=== PATIENT | female | born 1955 | race Caucasian/White ===

== ENCOUNTER → 2019-09-25 13:58 | Outpatient (BNVA) | payer MEDICARE, SELFPAY | PROVIDERS: Visit Provider Specialist | DX: R56.9 Unspecified convulsions (principal); R51 Headache; M06.9 Rheumatoid arthritis, unspecified; Z90.81 Acquired absence of spleen; Z96.649 Presence of unspecified artificial hip joint; Z87.891 Personal history of nicotine dependence | CPT/HCPCS: 99204 ==

== ENCOUNTER → 2019-10-11 07:51 | Outpatient (BNVA) | payer MEDICARE, SELFPAY | PROVIDERS: Visit Provider Specialist | DX: R56.9 Unspecified convulsions (principal) | CPT/HCPCS: 95816 ==

== ENCOUNTER 2019-11-29 11:19 | Outpatient (CLI) | payer MEDICARE, SELFPAY ==
--- NOTE | 2019-11-29 11:44 | MR_ITS ---
WS: [id number] MRI HEAD WITHOUT CONTRAST TECHNIQUE: Sagittal T1, T2 axial, T2 axial FLAIR, axial and coronal T1 images, axial susceptibility w eighted imaging, axial diffusion weighted images, and coronal T2 images were obtained. CLINICAL INFORMATION: R56.9 Unspecified convulsions COMPARISON: CT 3 016 FINDINGS: No evidence of restricted diffusion to suggest acute ischemia. Ventricular system and basal cisterns are patent. Mild small vessel changes. Moderate parenchymal volume loss. Cystic encephalomalacia in t he right frontal lobe with ex vacuo dilatation right lateral ventricle. This is likely due to prior i nfarct or hemorrhage. Cystic encephalomalacia communicates with right lateral ventricle. Prior right frontal craniotomy. Cystic encephalomalacia involves the corpus callosum with mild chronic thinning o f the corpus callosum No hydrocephalus. Normal posterior fossa. Normal vascular flow voids at the skull base. No extra-axia l fluid collections. Paranasal sinuses and mastoid air cells well aerated. No hemosiderin on the susc eptibly weighted images. Normal optic chiasm and pituitary infundibulum. Mild to moderate symmetric a trophy involving the temporal lobes and hippocampal formations. MR/MR head wo con* [id number] IMPRESSION: 1. No evidence of restricted diffusion to suggest acute ischemia. 2. Large area of cystic encephalomalacia involving the right frontal lobe repo rtedly due to prior hemorrhage/aneurysm rupture. Associated cystic dilatation o f the right lateral ventricle. Cystic encephalomalacia communicates with the ri ght frontal horn.. 3. Mild small vessel changes with moderate parenchymal volume loss. 4. Chronic thinning of the body and genu of the corpus callosum. 5. Mild to moderate symmetric atrophy involving the temporal lobes and hippoca mpal formations. No mesial temporal signal abnormalities. 6. No significant changes since the prior CT.
== END 2019-11-29 11:20 | disposition home or self-care (01) ==
LOC: RADSHAW 11:26
PROVIDERS: PCP Physician Assistant; Visit Provider Specialist
DX: R56.9 Unspecified convulsions (principal); G93.89 Other specified disorders of brain; G31.9 Degenerative disease of nervous system, unspecified
CPT/HCPCS: 70551

== ENCOUNTER → 2019-12-03 11:26 | Outpatient (BNVA) | payer MEDICARE, SELFPAY | PROVIDERS: PCP Physician Assistant; Visit Provider Specialist | DX: G40.909 Epilepsy, unspecified, not intractable, without status epilepticus (principal); G43.711 Chronic migraine without aura, intractable, with status migrainosus | CPT/HCPCS: 99214 ==

== ENCOUNTER → 2019-12-20 16:14 | Outpatient (BNVA) | payer MEDICARE, SELFPAY | PROVIDERS: PCP Physician Assistant; Visit Provider Nurse Practitioner Women's Health | DX: Z01.419 Encounter for gynecological examination (general) (routine) without abnormal findings (principal); Z79.890 Hormone replacement therapy | CPT/HCPCS: 83001; 84144; 84403; 84450; 88175 ==

== ENCOUNTER → 2020-01-08 07:59 | Outpatient (BNVA) | payer MEDICARE, SELFPAY | PROVIDERS: PCP Physician Assistant; Visit Provider Specialist | DX: R56.9 Unspecified convulsions (principal); G43.711 Chronic migraine without aura, intractable, with status migrainosus; Z87.891 Personal history of nicotine dependence | CPT/HCPCS: 95816 ==

== ENCOUNTER → 2020-03-12 11:33 | Outpatient (BNVA) | payer MEDICARE, SELFPAY | PROVIDERS: PCP Physician Assistant; Visit Provider Specialist | DX: R56.9 Unspecified convulsions (principal); G43.711 Chronic migraine without aura, intractable, with status migrainosus; Z87.891 Personal history of nicotine dependence | CPT/HCPCS: 99213 ==

== ENCOUNTER → 2020-09-10 13:23 | Outpatient (BNVA) | payer MEDICARE, SELFPAY | PROVIDERS: PCP Nurse Practitioner Family; Visit Provider Specialist | DX: G43.711 Chronic migraine without aura, intractable, with status migrainosus (principal); R56.9 Unspecified convulsions; R41.89 Other symptoms and signs involving cognitive functions and awareness; Z87.891 Personal history of nicotine dependence | CPT/HCPCS: 96116; 99214 ==

== ENCOUNTER → 2021-10-08 09:41 | Outpatient (BNVA) | payer MEDICARE, SELFPAY | PROVIDERS: PCP Nurse Practitioner Family; Visit Provider Specialist | DX: G40.909 Epilepsy, unspecified, not intractable, without status epilepticus (principal); I69.111 Memory deficit following nontraumatic intracerebral hemorrhage | CPT/HCPCS: 99214 ==

== ENCOUNTER 2022-01-05 23:38 | Inpatient (IN) | payer MEDICARE, SELFPAY ==
[2022-01-05 23:40] VITALS: BP 138/96; PULSE 71; RESP 20; TEMP 36.5; O2SAT 94
--- NOTE | 2022-01-05 23:46 | XRR_ITS ---
PROCEDURE INFORMATION: Exam: XR Right Hip Exam date and time: 01/05/2022 11:48 PM Age: 66 years old Clinical indication: Hip pain; Right hip; Prior surgery; Surgery type: RT thr; Patient HX: Dorset hip dislocate while sitting. History of dislocation. TECHNIQUE: Imaging protocol: Radiologic exam of the Right hip. Views: 1 view hip with pelvis when performed. COMPARISON: No relevant prior studies available. FINDINGS: Bones/joints: Right hip arthroplasty changes seen with superior displacement of the femoral component outside of the acetabular component without fracture seen. Soft tissues: Unremarkable. XR/XR hip RT 2-3V wo/w pel* [id number] IMPRESSION: Right hip arthroplasty changes seen with superior displacement of the femoral component outside of the acetabular component without fracture seen.
[2022-01-06] VITALS (14 sets, daily range): BP systolic 95–132; BP diastolic 43–73; PULSE 61–83; RESP 15–19; TEMP 36.6–37.6; O2SAT 94–99
--- NOTE | 2022-01-06 | SCC_ITS ---
Procedure done: Closed reduction right total hip arthroplasty aborted secondary to identification of dissociated femoral neck and head 6.6 seconds of fluoroscopic guidance, for a cumulative dose of 0.73 mGy, was provided to Dr. Neves by the radiology department. C-arm images of the RIGHT hip were saved for the patient's permanent record. MIRIAND
--- NOTE | 2022-01-06 | XR_ITS ---
WS: [id number] Right hip, C-arm fluoroscopy, 01/06/2022 0449 hours Clinical Data: DISLOCATION, JOHNNY PICS Comparison: Portable right hip, 01/06/2022, 2423 hours Findings: The femoral head component is located lateral to the acetabular portion of the arthroplasty. Impression: Dislocation of femoral head component of the right hip arthroplasty laterally.
--- NOTE | 2022-01-06 00:03 | XRR_ITS ---
PROCEDURE INFORMATION: Exam: XR Right Hip Exam date and time: 01/06/2022 12:10 AM Age: 66 years old Clinical indication: Injury or trauma; Other: Dislocation; Prior surgery; Surgery type: RT thr; Patient HX: Check S/P reduction; Additional info: Post reduction TECHNIQUE: Imaging protocol: Radiologic exam of the Right hip. Views: 1 view hip with pelvis when performed. COMPARISON: CR XR hip RT 2-3V wo/w pel* [id number] 01/05/2022 11:48 PM FINDINGS: Bones/joints: Apparent near complete reduction of previously seen right hip dislocation. Acetabular component appears somewhat superolateral to the acetabular component, please correlate clinically. Finding in part may be due to positioning. Soft tissues: Unremarkable. XR/XR hip RT 1V wo/w pel [id number] IMPRESSION: Apparent near complete reduction of previously seen right hip dislocation. Acetabular component appears somewhat superolateral to the acetabular component, please correlate clinically. Finding in part may be due to positioning.
--- NOTE | 2022-01-06 00:03 | W.ED.EXTPRO ---
HPI - Extremity Problem General: Chief complaint: Extremity Injury, Lower Stated complaint: HIP PAIN Time Seen by Provider: 01/05/22 23:40 Source: patient and EMS Mode of arrival: EMS Limitations: no limitations History of Present Illness: 66-year-old female had a hip replacement back in 2007 she states that tonight she sitting the table and felt a pop she believes she has dislocated states she has had this happen before but is been some years. Her leg is internally rotated she has pain she rates 5 out of 10 unable to ambulate. Associated symptoms: Deny chest pain, fever(s) or rash Review of Systems Const: Denies: fever(s), chills, body aches or change in appetite Eyes: Denies: blurry vision or eye discomfort ENMT: Denies: throat pain or dental pain Card: Denies: chest pain Resp: Denies: dyspnea GI: Denies: abdominal pain, nausea, vomiting or diarrhea : Denies: dysuria Musc: Reports: extremity pain; Denies: neck pain or back pain Skin/Breast: Denies: rash Neuro: Denies: headache(s) Psych: Denies: depression Filiberto/Lymph: Denies: easy bruising All/Imm: Denies: urticaria PFSH ED PFSH: Medical History H/O arteriovenous malformation (AVM) (~1984) H/O: CVA (cerebrovascular accident) (~2015) right middle cerebral artery Surgical History 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 Family History Father CAD (coronary artery disease) Social History Smoking and tobacco status: never smoked Alcohol intake: former Lives independently: Yes Housing: House Marital status: Number of children: 1 Highest education level completed: 12th Grade, No Diploma service: No Pets and animals: Yes History of recent travel: No Additional social history: - Tobacco use: Former; Quit in 1995 Alcohol use: Former; Quit 1981 Drug use: Denies Physical Exam Const: COMMON NORMALS: no acute distress, patient oriented x3 and healthy appearing HENMT: COMMON NORMALS: normocephalic and atraumatic HEAD & SCALP: normocephalic and atraumatic Eye: COMMON NORMALS: conjunctivae normal CONJUNCTIVA: Yes conjunctivae normal Neck/C-Spine: COMMON NORMALS: full ROM and supple Chest: COMMONS NORMALS: normal inspection of the chest Resp: COMMON NORMALS: normal respiratory effort Cardio: COMMON NORMALS: regular rate RATE: regular rate GI: INSPECTION: Yes normal to inspection Extremity: NARRATIVE EXTREMITY EXAM: Right leg is internally rotated and shortened likely hip dislocation Neuro: COMMON NORMALS: patient oriented x3, moves all extremities and no focal motor deficits Psych: COMMON NORMALS: mental status grossly normal, Normal thought process present and cooperative THOUGHT PROCESS: Normal thought process present Skin: COMMON NORMALS: no rashes or lesions noted and no wounds GENERAL SKIN EXAM: no rashes or lesions noted Procedures Orthopedic Joint Reduction Joint #1: Time Out Performed: Yes Side: right Joint Reduction Location: hip Analgesia: procedural sedation Technique used: traction/counter-traction Post-reduction neuro exam: intact Post-reduction vascular: intact Post Reduction X-Ray Obtained: Yes Post Reduction X-Ray Results: not reduced Patient Tolerated Procedure: well Procedural Sedation Indication: fracture/dislocation reduction ASA Class: I Time of Last PO Intake: 20:00 IV Propofol dose (mg): 150 Patient Tolerated Procedure: well Complications: none Interventions: oxygen applied and airway repositioned Course Vital Signs: Vital signs: Vital Signs Temperature 97.7 F 01/05/22 23:40 Pulse Rate 71 01/05/22 23:40 Respiratory Rate 16 01/06/22 01:05 Blood Pressure 138/96 01/05/22 23:40 Pulse Oximetry 94 01/05/22 23:40 Oxygen Delivery Me thod 01/05/22 23:40 MDM - Extremity (Nontraumatic) Medical Decision Making Patient presents with a right hip dislocation I was unable to relocate the hip spoke to orthopedist plan on taking to the operating room. After 10 patient is neurovascularly intact. EKG Data EKG 1: I personally reviewed and interpreted this EKG as follows: EKG interpretation date: 01/06/22 EKG interpretation time: 00:44 Interpretation: nsr hr [address] or t wave abnormalities qrs 82 qtc 421 Discharge Plan Discharge Admit Provider: Ambar Neves Condition: Stable Coding Level of Care Code ED Shot Polisher And Inspector for Chg Fwd Exam Comprehensive
--- NOTE | 2022-01-06 00:44 | ECG_ITS ---
[facility] Test Date: 2022-01-06 Pat Name: Zehra Adrian Department: Room: Gender: Female Inbound Telemarketer: : 1955 Requested By: Michelle Romero Order Number: [id number] Ryan MD: Néstor Ocampo M.D. Measurements Intervals [place] Rate: 62 P: 62 NH: 167 QRS: 61 QRSD: 82 T: 68 QT: 417 QTc: 424 Interpretive Statements SINUS RHYTHM POSSIBLE LEFT ATRIAL ENLARGEMENT [-0.1mV P-WAVE IN V1/V2] POSSIBLE RIGHT VENTRICULAR CONDUCTION DELAY [RSR (QR) IN V1/V2] Compared to ECG 10/23/2018 21:40:58 Sinus bradycardia no longer present Electronically Signed On 01-06-2022 19:47:01 CDT by Néstor Ocampo M.D. [email or web address]
[2022-01-06] MEDS: propofol 10 mg/mL SDV 20 mL 150 MG IVP (01:03)
[2022-01-06] MEDS: HYDROmorphone 1 mg/mL INJ 1 mL 0.5 MG IVP ×2 (01:05→02:50)
[2022-01-06] MEDS: sodium chloride 0.9% 1,000 ML 75 ML IV (02:02)
[2022-01-06 04:54] LABS: Basophils % 0.3 %; Eosinophils # 0.1 10^3/uL (0.0-0.8); Eosinophils % 0.4 %; Hematocrit 34.9 % (37.0-47.0); Hemoglobin 11.3 g/dL (11.5-15.3); Lymphocytes # 2.7 10^3/uL (0.8-4.8); Lymphocytes % 23.1 %; Mean Corpuscular HGB Conc 32.4 g/dL (30.0-36.0); Mean Corpuscular Hemoglobin 31.3 pg (28.0-34.0); Mean Corpuscular Volume 96.7 fl (81-99); Mean Platelet Volume 9.4 fL (7.4-10.4); Monocytes % 8.9 %; Neutrophils # 7.72 10^3/uL (1.8-7.7); Nucleated Red Blood Cells % 0 %; Platelet Count 404 10^3/cmm (130-400); Red Blood Count 3.61 10^6/uL (4.1-5.3); Red Cell Distribution Width 14.4 % (12.1-15.1); White Blood Count 11.6 10^3/uL (4.0-10.0)
[2022-01-06 05:06] LABS: INR 0.98 (0.8-1.2)
[2022-01-06 05:16] LABS: Anion Gap 11.6 (5-19); Blood Urea Nitrogen 17 mg/dL (8-23); Calcium 9.5 mg/dL (8.5-10.5); Carbon Dioxide 28 mmol/L (22-29); Chloride 102 mmol/L (98-107); Glomerular Filtration Rate 124.2 mL/min (90-130); Glucose 119 mg/dL (65-115); Osmolality Calculated 289 mOsm/kg (285-295); Potassium 3.6 mmol/L (3.5-5.1); Sodium 138 mmol/L (136-145)
--- NOTE | 2022-01-06 06:17 | P.HP_ITS ---
Same Day Surgery H&P Indication for Procedure/HPI DATE OF PROCEDURE: January 06, 2022 CHIEF COMPLAINT/INDICATIONFOR SURGICAL PROCEDURE: Dislocation right total hip arthroplasty PREOP DIAGNOSIS: Dislocation right total hip arthroplasty PLANNED PROCEDURE: Operation Date: 01/06/22 06:00 Proposed Procedures p Closed Reduction Hip(Right) - Ambar Neves MD This 66-year-old woman was in her usual state of health when she felt her right total hip arthroplasty dislocate. This total hip arthroplasty was placed in 2007 in [facility]. The patient moved to [place] in approximately 2008, and she states that she has had intermittent symptoms of issues with the hip. She notes that normally, she can relax and the hip will return to its normal position. She has never required a formal closed reduction. This subluxation phenomenon has occurred 3-4 times. The most recent time was in the shower about a week ago. She was able to relax and allow the hip to return to its normal position. Last evening, while sitting in a chair, the hip dislocated and she was not able to perform the maneuver that she normally would. She presented to the emergency department, and at that time, they performed an attempted closed reduction under propofol sedation. This was unsuccessful. The patient was neurologically intact, and therefore, she was brought into the hospital for scheduled urgent closed reduction of her hip. Medications/Allergies* Penicillins cause upset stomach. Home Medications Medication Instructions Recorded Confirmed Type quetiapine 300 mg tablet (Seroquel) 300 mg PO DAILY 09/25/19 10/08/21 History biest/progesterone/testosterone/dhe 2.5 mg/ml as directed DAILY 12/20/19 10/08/21 History escitalopram oxalate 20 mg tablet 20 mg PO DAILY 12/20/19 10/08/21 History (Lexapro) lithium carbonate 150 mg capsule 150 mg PO DAILY 12/20/19 10/08/21 History Allergies/Adverse Reactions Allergy/AdvReac Type Severity Reaction Status Date / Time Penicillins Allergy Mild upset Verified 10/08/21 08:16 stomach Current Medications: Generic Name Dose Route Start Last Admin Trade Name Freq PRN Reason Stop Dose Admin Hydromorphone HCl 0.5 mg 01/06/22 02:07 01/06/22 02:50 Hydromorphone 1 Mg/Ml Inj 1 Ml IVP 0.5 mg Q4H PRN Administration PAIN Sodium Chloride 1,000 mls @ 75 mls/hr 01/06/22 01:30 01/06/22 02:02 Sodium Chloride 0.9% IV 75 mls/hr .[id number] LANA Administration Pertinent History/Comorbid Conditions* Medical History (Updated 09/10/20 @ 15:46 by Airam English MD) H/O arteriovenous malformation (AVM) (~1984) H/O: CVA (cerebrovascular accident) (~2015) right middle cerebral artery Surgical History (Updated 12/20/19 @ 15:40 by Carrie Perea APN, REDD) 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 Family History (Updated 12/21/19 @ 17:15 by Carrie Perea APN, REDD) CAD (coronary artery disease) Father Social History Smoking and tobacco status: never smoked Alcohol intake: former Lives independently: Yes Housing: House Marital status: Number of children: 1 Highest education level completed: 12th Grade, No Diploma service: No Pets and animals: Yes History of recent travel: No Additional social history: - Tobacco use: Former; Quit in 1995 Alcohol use: Former; Quit 1981 Drug use: Denies Pertinent Exam Findings alert, oriented x 3, clear to auscultation bilaterally, regular rate & rhythm and operative site marked Related Problem List Diagnoses (1) Dislocation of hip, right, closed: Recommendations Surgery/Procedure today Coding Level of Care Code Acute Manual Machinist for Chandu Greenberg Diagnoses Dislocation of hip, right, closed S73.004A
--- NOTE | 2022-01-06 06:18 | ANES.PREANE2 ---
Pre-Anesthetic Assessment Height/Weight: Height 1.7 m Weight 56.699 kg Temp Pulse Resp BP Pulse Ox O2 Del Method 98.3 F 81 18 108/43 96 01/06/22 06:05 01/06/22 06:05 01/06/22 06:05 01/06/22 06:05 01/06/22 06:05 01/06/22 06:05 Operation Date: 01/06/22 06:00 Proposed Procedures p Closed Reduction Hip(Right) - Ambar Neves MD Familial anesthetic complications: None Was Beta Dawna taken within 24 hours: N/A Was Clonidine taken within 24 hours: N/A Last intake: Intake Last Liquid Date 01/05/22 Last Liquid Time 23:30 Last Solid Date 01/05/22 Last Solid Time 20:30 Social No alcohol and No tobacco Exam alert, oriented x 3, clear to auscultation bilaterally and regular rate & rhythm Airway Mallampati: Class I Dentition: loose Pulmonary Chronic Obstructive Pulmonary Disease Neuropsych Seizure Anesthetic Plan ASA status: 2 Anesthesia: General Risk of > 500 ml blood loss (7ml/kg in children): No Medications/Allergies Home Medications Medication Instructions Recorded Confirmed Last Taken Type quetiapine 300 mg tablet (Seroquel) 300 mg PO DAILY 09/25/19 10/08/21 Unknown History lamotrigine 200 mg tablet 200 mg PO DAILY #90 tabs 12/03/19 10/08/21 Unknown Rx (Lamictal) alprazolam 0.25 mg tablet 0.25 mg PO BID PRN Seizure #30 tabs 12/10/19 10/08/21 Unknown Rx biest/progesterone/testosterone/dhe 2.5 mg/ml as directed DAILY 12/20/19 10/08/21 Unknown History escitalopram oxalate 20 mg tablet 20 mg PO DAILY 12/20/19 10/08/21 Unknown History (Lexapro) lithium carbonate 150 mg capsule 150 mg PO DAILY 12/20/19 10/08/21 Unknown History galantamine 4 mg tablet 4 mg PO BID #180 tabs 12/09/21 Unknown Rx Allergies Allergy/AdvReac Type Severity Reaction Status Date / Time Penicillins Allergy Mild upset Verified 10/08/21 08:16 stomach Current Medications Generic Name Dose Route Start Last Admin Trade Name Freq PRN Reason Stop Dose Admin Hydromorphone HCl 0.5 mg 01/06/22 02:07 01/06/22 02:50 Hydromorphone 1 Mg/Ml Inj 1 Ml IVP 0.5 mg Q4H PRN Administration PAIN Sodium Chloride 1,000 mls @ 75 mls/hr 01/06/22 01:30 01/06/22 02:02 Sodium Chloride 0.9% IV 75 mls/hr .[id number] LANA Administration PFSH Anesthesia Medical History H/O arteriovenous malformation (AVM) (~1984) H/O: CVA (cerebrovascular accident) (~2015) right middle cerebral artery Surgical History 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0-47.0) % MCV 96.7 (81-99) fl Plt Count 404 H (130-400) 10^3/cmm Neut % (Auto) 67.0 % Neut # (Auto) 7.72 H (1.8-7.7) 10^3/uL BMP 01/06/22 04:43 Sodium 138 Potassium 3.6 Chloride 102 Carbon Dioxide 28 BUN 17 Creatinine 0.5 Glucose 119 H Calcium 9.5 Coags 01/06/22 04:43 PT 13.30 INR 0.98 Cardiac Studies: No Data to Display
[2022-01-06] MEDS: sodium chloride 0.9% 1,000 ML 30 ML IV (06:32)
[2022-01-06] MEDS: ceFAZolin 2,000 MG in sodium chloride 0.9% (plus) 50 ML 100 MG IV (06:45)
--- NOTE | 2022-01-06 08:17 | ANE.PACU2 ---
Inpatient post-anesthesia follow up: Airway intact: Yes Vital signs: Temperature 97.9 F Pulse Rate 77 Respiratory Rate 16 Blood Pressure 103/73 Pulse Oximetry 99 Oxygen Delivery Me thod Room Air Oxygen Flow Rate Fraction of Inspir ed Oxygen Hydration adequate: Yes Nausea and vomiting: No Pain level: 2 Mental status: Baseline
--- NOTE | 2022-01-06 09:13 | PC.CHAP ---
Pastoral Care Encounter/Spiritual Assessment Type of Contact [] Declined java sdet visit [] Patient/Family/Request visit [] Outpatient visit [] Follow-up visit [] Physician referral [] Code/Alert [x] Routine visit [] Staff referral [] Actively dying [] Patient sleeping [] Family support [] [] Out of room [] Palliative care [] [] Receiving care in room [] Pre-surgical visit [] Trauma [] Long length of stay [] ICU visit [] Other: Relational/Emotional Strength [] Patient feels connected with others/family/visitors/staff [] Distress [] Loneliness/isolation [] Abandonment Spirituality of Patient [x] Person of Latisha [] Attends Moravian of their Latisha [x] Believes in Prayer [x] Reads Bible or Holiness materials [] There are Spiritual issues to be addressed Medical Management Specialist Interventions [x] Prayer [x] Active listening [x] Non-anxious presence [x] Spiritual/emotional support [] Crisis/trauma care [] Spiritual counseling [] Bereavement support [] Provided bereavement packet [] Provided Bible/devotional materials [] Provided toy/stuffed animal, coloring book to patient or family member [] Provided Communion [] Anointing/[place] [] Salvation [x] Completed spiritual assessment [] Other: Impact on Illness or Injury [] Angry [] Fearful [] Anxious [] Often cries [] Exhaustion [] Unable to work [] Unable to attend yarsanism [] Unable to walk/stand [] Unable to read [] Unable to drive [] Unable to eat/drink [] Unable to sleep [] Unable to be with family [] Patient intubated [] Other: Summary Pt has dislocated hip and it is apparent she is in pain. Believes she will have procedure today or tomorrow to try to manipulate the hip back into place. Pt states she is a person of latisha and Jose is my Lord . She does not attend a voodoo since she has not found one she likes. She moved here from [facility]. Her is from the area. Time spent with patient 10m
[2022-01-06] MEDS: oxyCODONE 5 mg IR Tab/Cap PO ×4 (09:20→21:42)
[2022-01-06] MEDS: acetaminophen 1,000 MG/100 ML PIGGYBACK 400 MG IV ×2 (10:20→21:56)
--- NOTE | 2022-01-06 10:25 | P.OP_ITS ---
Operative Report Date of procedure: January 06, 2022 Pre-op diagnosis: Right total hip arthroplasty dislocation Post-op diagnosis: Right total hip arthroplasty dislocation with dissociation of the femoral neck and head Procedure done: Closed reduction right total hip arthroplasty aborted secondary to identification of dissociated femoral neck and head Pathology: none sent Surgeon: Ambar Neves Anesthesia: General Findings: Unable to proceed with closed reduction due to identification of the associated femoral head and neck Condition: stable Disposition: PACU (Then to be admitted to floor to await appropriate prosthetic components if available) Brief History: Zehra Adrian is a 66 year old female who presented to the emergency department last evening with a right hip dislocation.? The patient had total hip arthroplasty in [facility] in 2007.? This total hip was performed by a Dr. Gus Gomez.? The patient describes intermittent symptoms of subluxation of the hip, but she has not had a greg dislocation.? Her most recent feeling of subluxation was approximately a week or so ago.? Last evening, she was sitting in her chair and the hip popped out of joint .? She was brought to the emergency department where closed reduction was attempted.? She was ne urologically intact and comfortable following this attempted reduction.? Emergency room physician was unable to obtain a reduction of the prosthetic component.? She therefore was brought into the hospital as outpatient in a bed for plans for closed reduction in the operating room with paralysis under general anesthesia. Risks and complications were discussed with the patient. Consents were signed. Questions were answered. Procedure: Patient was brought to the operating theater and administered general anesthesia. She was then transferred to the [place] table. Prior to beginning the surgical procedure, a surgical pause was performed. The patient's leg had been marked. She also received IV antibiotics. Once the patient was on the [place] t able and the hip was able to be manipulated into appropriate position for evaluation, imaging studies demonstrated that there was dissociation of the femoral head from the femoral neck. It appeared that the femoral neck had been reduced during the emergency room procedure into the acetabulum, but the femoral head was noted to be displaced superiorly and from the neck. This was not readily apparent on initial evaluation of the patient's post reduction imaging from the emergency department. Therefore, the procedure was aborted and the patient was returned to the recovery room. Discussion was then undertaken with her that we would need to proceed either with revision of her total hip arthroplasty, open reduction with use of current femoral neck and acetabular liner, or preferably, we would be able to identify the prosthesis and obtain appropriate components to allow the acetabular liner to be replaced as well as the femoral head. The patient was admitted to the hospital. Related Problem List Diagnoses (1) Failed total hip arthroplasty with dislocation:
--- NOTE | 2022-01-06 10:37 | P.HP_ITS ---
Providers/Chief Complaint Admitting Physician: Ambar Neves MD Chief Complaint: HIP PAIN History of Present Illness Zehra Adrian is a 66 year old female who presented to the emergency department last evening with a right hip dislocation. The patient had total hip arthroplasty in [facility] in 2007. This total hip was performed by a Dr. Gus Gomez. The patient describes intermittent symptoms of subluxation of the hip, but she has not had a greg dislocation. Her most recent feeling of subluxation was approximately a week or so ago. Last evening, she was sitting in her chair and the hip popped out of joint. She was brought to the emergency department where closed reduction was attempted. She was neurologically intact and comfortable following this attempted reduction. Emergency room physician was unable to obtain a reduction of the prosthetic component. She therefore was brought into the hospital as outpatient in a bed for plans for closed reduction in the operating room with paralysis. Upon place ment on the [place] to accomplish the closed reduction, it became apparent with imaging studies that there had been dissociation between the femoral neck and femoral head. The head remained outside of the acetabular component, and it appeared that the neck was within the acetabular component. Therefore, the patient was admitted to the hospital. We will attempt to obtain previous records from the patient's total hip arthroplasty in 2007. A consent will be obtained. She will need to undergo revision of her total hip arthroplasty versus replacement of the acetabular liner and femoral head if we can identify the prosthesis and obtain appropriate equipment. Additionally, the final option is to place the femoral head on her current femoral stem and reduce this construct in an open fashion. This is discussed with the patient and she is admitted for Farah's traction and subsequent surgical intervention once we are able to obtain information. Review of Systems General: Reports: 10 or more systems reviewed and unremarkable except in HPI and below Const: Denies: fever(s), chills, body aches or change in appetite Eyes: Denies: change in vision, blurry vision, photophobia or eye discomfort ENMT: Denies: throat pain or dental pain Card: Denies: chest pain Resp: Denies: dyspnea GI: Denies: abdominal pain, nausea, vomiting or diarrhea : Denies: flank pain or dysuria Musc: Reports: extremity pain and joint pain; Denies: neck pain or back pain Skin/Breast: Denies: rash Neuro: Denies: headache(s) Psych: Denies: anxiety or depression Endo: Denies: polyuria Filiberto/Lymph: Denies: easy bruising All/Imm: Denies: urticaria Medications/Allergies Home Medications Medication Instructions Recorded Confirmed Last Taken Type quetiapine 300 mg tablet (Seroquel) 300 mg PO BEDTIME 09/25/19 01/06/22 Unknown History escitalopram oxalate 20 mg tablet 20 mg PO BEDTIME 12/20/19 01/06/22 Unknown History (Lexapro) lithium carbonate 150 mg capsule 150 mg PO BEDTIME 12/20/19 01/06/22 Unknown History galantamine 4 mg tablet 4 mg PO BID #180 tabs 12/09/21 01/06/22 Unknown Rx acetaminophen 500 mg tablet 1,000 mg PO Q6H PRN Pain 01/06/22 01/06/22 Unknown History ibuprofen 200 mg tablet 400 mg PO Q6H PRN Pain 01/06/22 01/06/22 Unknown History lamotrigine 200 mg tablet 200 mg PO BEDTIME 01/06/22 01/06/22 Unknown History (Lamictal) Allergies Allergy/AdvReac Type Severity Reaction Status Date / Time Penicillins Allergy Mild upset Verified 01/06/22 09:07 stomach PFSH Acute PFSH: Medical History (Updated 01/06/22 @ 15:23 by Ambar Neves MD) Bipolar 1 disorder Chronic migraine without aura, intractable, with status migrainosus H/O arteriovenous malformation (AVM) (~1984) H/O: CVA (cerebrovascular accident) (~2015) right middle cerebral artery Seizures Surgical History (Updated 01/06/22 @ 12:51 by Kalin De Luna MD) 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 History of craniotomy History of splenectomy Family History Father CAD (coronary artery disease) Social History Smoking and tobacco status: never smoked Alcohol intake: former Lives independently: Yes Housing: House Marital status: Number of children: 1 Highest education level completed: 12th Grade, No Diploma service: No Pets and animals: Yes History of recent travel: No Additional social history: - Tobacco use: Former; Quit in 1995 Alcohol use: Former; Quit 1981 Drug use: Denies Vitals/I&O/Wt Last Vital Signs Temp 99.7 F H 01/06/22 08:18 Pulse 70 01/06/22 08:18 Resp 16 01/06/22 09:20 BP 105/57 01/06/22 08:18 Pulse Ox 95 01/06/22 08:18 O2 Del Method 01/06/22 08:18 01/05/22 01/06/22 01/06/22 22:59 06:59 14:59 Intake Total 400 / 400 50 / 50 Output Total 0 / 0 Balance 400 / 400 50 / 50 Weight last 48 hrs Weight 125 lb Physical Exam Const: COMMON NORMALS: no acute distress, average body habitus, patient oriented x3 and alert GENERAL APPEARANCE: cooperative and comfortable ORIENTATION/CONSCIOUSNESS: Yes awake HENMT: COMMON NORMALS: normocephalic and atraumatic HEAD & SCALP: normocephalic and atraumatic Eye: GENERAL EYE: appearance normal, both eyes and all related structures Chest: COMMONS NORMALS: normal inspection of the chest Resp: COMMON NORMALS: normal respiratory effort EFFORT & INSPECTION: Yes able to speak in complete sentences and Yes symmetric chest movement Extremity: RIGHT LOWER EXTREMITY: Yes hip joint (Pain with any range of motion.) Right hip: Yes inspection (Leg lengths were restored when the femoral neck was placed into the acetabu), Yes ROM (Not evaluated secondary to dislocation.) and Yes neurovascular exam (Intact distally motor and sensory function.) Neuro: COMMON NORMALS: patient oriented x3 SENSORIUM/ORIENTATION: Yes alert Psych: COMMON NORMALS: mental status grossly normal APPEARANCE: Yes grossly normal ATTITUDE: Yes calm and Yes engaged ATTENTION/CONCENTRATION: Yes attention grossly intact Skin: COMMON NORMALS: no rashes or lesions noted GENERAL SKIN EXAM: no rashes or lesions noted Urinary Catheter Management: Mejía: Cath Placed During This Visit: yes Urinary Catheter Date of Insertion: 01/06/22 Urinary Catheter Time of Insertion: 09:55 Data : 01/06/22 11:26 01/06/22 11:26 Xray Ortho: My impression: Multiple studies are reviewed including initial presentation, postreduction, and intraoperative images. Intraoperative images demonstrate a definite dissociation of the femoral head from the femoral neck with return of the femoral neck to the acetabulum without the femoral head. Initial imaging studies demonstrate a superior dislocation of the femur from the acetabulum. Qu estionably, on the lateral, there may have been dissociation at that time. Postreduction imaging demonstrates the femoral head to be outside of the acetabulum and the femoral neck is difficult to assess. A&P Assessment and plan (1) Failed total hip arthroplasty with dislocation: As noted above, this 66-year-old patient presented to the emergency department with a hip dislocation. Upon evaluation in the operating room after attempted closed reduction in the emergency department, it became apparent that there was dissociation between the femoral head and the femoral neck. Femoral head was superiorly displaced, and the femoral neck had been returned to the acetabulum. In retrospect and on evaluation of the patient's imaging studies, it appears that following the attempted closed reduction, there was dissociation of the femoral head from the femoral neck, but due to limitations of the x-ray without the benefit of anesthesia, this was not obvious. After the patient was evaluated on the [place] table for close reduction, it was determined that we would need to proceed with either revision of the patient's total hip, open reduction with replacement of the current femoral head into the current acetabular liner, or preferably, obtaining a new acetabular liner and femoral head for longevity and stability. Status: Acute Qualifiers: Encounter type: initial encounter Laterality: right Qualified Code(s): T84.020A - Dislocation of internal right hip prosthesis, initial encounter (2) Bipolar 1 disorder: Patient will be seen and evaluated by the hospitalist team to follow for possible issues regarding her bipolar disorder. Status: Acute Attestations Medical Necessity Statement*: Patient requires inpatient for left hip dislocation with dissociation of her components. Coding Level of Care Code Acute Router Tender for Louise Fwd Diagnoses Failed total hip arthroplasty with dislocation T84.020A Encounter type: initial encounter Laterality: right Bipolar 1 disorder F31.9
[2022-01-06 11:13] LABS: Bilirubin Urine Neg (Negative); Blood Urine 2+ (Negative); Glucose Urine UA Norm (Normal); Ketones Urine 1+ (Negative); Leukocyte Esterase Urine 2+ (Negative); Nitrate Urine Positive (Negative); Protein Urine Neg (Negative); Urine Appearance Hazy (CLEAR); Urine Color Yellow (Yellow); Urobilinogen Urine 0.2 mg/dL (Negative); pH Urine 5 (5-7)
[2022-01-06 11:14] LABS: Add Urine Culture? Yes; Add Urine Microscopic? YES; Bacteria Urine 4+ /hpf; Calcium Oxalate Crystals Urine 0-4 /hpf; Squamous Epithelial Cell Urine 0-4 /hpf (0-5); WBC Urine 15-25 /hpf (0-5)
[2022-01-06 11:34] LABS: Basophils % 0.2 %; Eosinophils # 0.1 10^3/uL (0.0-0.8); Eosinophils % 0.5 %; Hematocrit 35.2 % (37.0-47.0); Hemoglobin 11.4 g/dL (11.5-15.3); Lymphocytes % 16.2 %; Mean Corpuscular HGB Conc 32.4 g/dL (30.0-36.0); Mean Corpuscular Hemoglobin 31.6 pg (28.0-34.0); Mean Corpuscular Volume 97.5 fl (81-99); Mean Platelet Volume 9.5 fL (7.4-10.4); Monocytes # 1.1 10^3/uL (0.2-0.9); Monocytes % 9.2 %; Neutrophils # 8.82 10^3/uL (1.8-7.7); Neutrophils % 73.6 %; Nucleated Red Blood Cells % 0 %; Platelet Count 414 10^3/cmm (130-400); Red Blood Count 3.61 10^6/uL (4.1-5.3); Red Cell Distribution Width 14.6 % (12.1-15.1)
[2022-01-06 11:50] LABS: Alanine Aminotransferase 29 U/L (0-33); Albumin Level 3.7 g/dL (3.5-5.2); Alkaline Phosphatase 77 U/L (35-105); Anion Gap 11.3 (5-19); Aspartate Amino Transferase 29 U/L (0-32); Blood Urea Nitrogen 14 mg/dL (8-23); Calcium 9.3 mg/dL (8.5-10.5); Carbon Dioxide 24 mmol/L (22-29); Chloride 101 mmol/L (98-107); Globulin 2.6 g/dL (1.3-4.6); Glomerular Filtration Rate 124.2 mL/min (90-130); Glucose 118 mg/dL (65-115); Osmolality Calculated 278 mOsm/kg (285-295); Potassium 3.3 mmol/L (3.5-5.1); Sodium 133 mmol/L (136-145); Total Bilirubin 0.3 mg/dL (0.15-1.2); Total Protein 6.3 g/dL (6.6-8.7)
--- NOTE | 2022-01-06 12:17 | P.CONIM_ITS ---
Providers/Reason For Consult Consulting Physician/Specialty*: Kalin De Luna MD, hospitalist Reason for Consult*: Medical management Requesting Physician: Dr. Neves Attending Physician: Ambar Neves MD History of Present Illness History of Present Illness Zehra Adrian is a 66 year old female who presented today for relocation of her hip. Unfortunately secondary to chronic issue she will require hemiarthroplasty. She is seen today for medical management, considering her chronic health issues of bipolar depression and past history of seizure. She has not had any recent seizures and is not on any medicine for it currently. Abnormal labs were also noted on admission. She reports no history of heart or lung problems, difficulty with anesthesia, or exertional chest discomfort. Review of Systems General: Reports: 10 or more systems reviewed and unremarkable except in HPI and below Const: Denies: fever(s) or chills Eyes: Denies: change in vision ENMT: Denies: throat pain Card: Denies: chest pain Resp: Denies: dyspnea GI: Denies: abdominal pain : Denies: flank pain Musc: Reports: joint pain Skin/Breast: Denies: rash Neuro: Denies: headache(s) Psych: Denies: anxiety or depression Endo: Denies: polyuria Filiberto/Lymph: Denies: easy bruising All/Imm: Denies: urticaria Medications/Allergies Home Medications Medication Instructions Recorded Confirmed Last Taken Type quetiapine 300 mg tablet (Seroquel) 300 mg PO BEDTIME 09/25/19 01/06/22 Unknown History escitalopram oxalate 20 mg tablet 20 mg PO BEDTIME 12/20/19 01/06/22 Unknown History (Lexapro) lithium carbonate 150 mg capsule 150 mg PO BEDTIME 12/20/19 01/06/22 Unknown History galantamine 4 mg tablet 4 mg PO BID #180 tabs 12/09/21 01/06/22 Unknown Rx acetaminophen 500 mg tablet 1,000 mg PO Q6H PRN Pain 01/06/22 01/06/22 Unknown History ibuprofen 200 mg tablet 400 mg PO Q6H PRN Pain 01/06/22 01/06/22 Unknown History lamotrigine 200 mg tablet 200 mg PO BEDTIME 01/06/22 01/06/22 Unknown History (Lamictal) Allergies Allergy/AdvReac Type Severity Reaction Status Date / Time Penicillins Allergy Mild upset Verified 01/06/22 09:07 stomach Current Medications Generic Name Dose Route Start Last Admin Trade Name Freq PRN Reason Stop Dose Admin Acetaminophen 1,000 mg in 100 mls @ 400 mls/hr 01/06/22 09:44 01/06/22 12:03 Acetaminophen IV 01/07/22 01:59 Infused Q8H PRN Infusion PAIN PFSH Acute PFSH: Medical History (Updated 01/06/22 @ 12:55 by Kalin De Luna MD) Bipolar 1 disorder Chronic migraine without aura, intractable, with status migrainosus H/O arteriovenous malformation (AVM) (~1984) H/O: CVA (cerebrovascular accident) (~2015) right middle cerebral artery Seizures Surgical History (Updated 01/06/22 @ 12:51 by Kalin De Luna MD) 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 History of craniotomy History of splenectomy Family History Father CAD (coronary artery disease) Social History Smoking and tobacco status: never smoked Alcohol intake: former Lives independently: Yes Housing: House Marital status: Number of children: 1 Highest education level completed: 12th Grade, No Diploma service: No Pets and animals: Yes History of recent travel: No Additional social history: - Tobacco use: Former; Quit in 1995 Alcohol use: Former; Quit 1981 Drug use: Denies Vitals/I&O/Wt Last Vital Signs Temp 99.7 F H 01/06/22 08:18 Pulse 70 01/06/22 08:18 Resp 16 01/06/22 09:20 BP 105/57 01/06/22 08:18 Pulse Ox 95 01/06/22 08:18 O2 Del Method 01/06/22 08:18 01/05/22 01/06/22 01/06/22 22:59 06:59 14:59 Intake Total 400 / 400 150 / 150 Output Total 0 / 0 Balance 400 / 400 150 / 150 Weight last 48 hrs Weight 56.699 kg Physical Exam Narrative: General exam is a white female, no distress HEENT: Atraumatic normocephalic. Pupils equally round. Oropharynx clear. Neck is supple no lymphadenopathy thyromegaly Cardiovascular regular rate and rhythm without murmur, no S3 or S4 Lungs clear no wheezing or crackles Abdomen is soft nontender positive bowel sounds exam is deferred Extremities no cyanosis clubbing or edema, cap refill brisk Skin no rash Neuro no obvious focal deficits Urinary Catheter Management: Mejía: Cath Placed During This Visit: yes Urinary Catheter Date of Insertion: 01/06/22 Urinary Catheter Time of Insertion: 09:55 Data : 01/06/22 11:26 01/06/22 11:26 Other Labs: urinalysis shows 10-15 RBC and 15-25 WBC. Positive nitrates and 4+ bacteria. A&P Assessment and plan (1) Failed total hip arthroplasty with dislocation: Definitive surgery planned for tomorrow. Status: Acute (2) Bipolar 1 disorder: Continue patient's home medications. Status: Acute (3) Hypokalemia: Supplement orally currently. Status: Acute (4) UTI (urinary tract infection): Urine culture Rocephin 1 g IV every 24 hours Status: Acute Plan Multiple other medical problems as outlined in past medical history Full code Defer to primary DVT prophylaxis. SCDs are ordered. Thank you for this consultation Consult Attestations Medical Necessity Statement: As per primary Coding Level of Care Code Acute Camera Prototyping Engineer for g Fwd Diagnoses Failed total hip arthroplasty with dislocation T84.028A; Z96.649 Bipolar 1 disorder F31.9 Hypokalemia E87.6 UTI (urinary tract infection) N39.0
[2022-01-06] MEDS: cefTRIAXone 1,000 MG in sodium chloride 0.9% (plus) 50 ML 100 MG IV (12:47)
[2022-01-06] MEDS: potassium chloride ER 20 mEq Tablet 40 MEQ PO (12:47)
--- NOTE | 2022-01-06 18:10 | PC.NURSE ---
PATIENT HAS DONE WELL TODAY. TOLERATED BUCKS TRACTION UNTIL EARLY AFTERNOON. REMOVED PER DR. LEDESMA. PAIN MEDICATION ADMINISTERED. PAIN WELL CONTROLLED AT THIS TIME. THIS NURSE INSERTED KLEIN CATHETER. PATIENT HAD MORE THAN ADEQUATE OUTPUT AT 1600ML FOR THIS SHIFT. GOOD ORAL INTAKE. MARYAM AND FOOT PUMP TO UNAFFECTED EXTREMITY. PATIENT WILL BE NPO AFTER MIDNIGHT. PATIENT CURRENTLY RESTING IN BED WITH NO COMPLAINTS AT THIS TIME.
[2022-01-07] VITALS (14 sets, daily range): BP systolic 104–135; BP diastolic 41–88; PULSE 66–110; RESP 16–22; TEMP 36.3–36.9; O2SAT 93–99
[2022-01-07 02:32] LABS: Basophils % 0.3 %; Eosinophils # 0.2 10^3/uL (0.0-0.8); Hematocrit 36.4 % (37.0-47.0); Hemoglobin 11.8 g/dL (11.5-15.3); Lymphocytes % 39.5 %; Mean Corpuscular HGB Conc 32.4 g/dL (30.0-36.0); Mean Corpuscular Hemoglobin 31.5 pg (28.0-34.0); Mean Corpuscular Volume 97.1 fl (81-99); Mean Platelet Volume 9.6 fL (7.4-10.4); Monocytes % 9.7 %; Neutrophils # 4.94 10^3/uL (1.8-7.7); Neutrophils % 48.2 %; Nucleated Red Blood Cells % 0 %; Platelet Count 415 10^3/cmm (130-400); Red Blood Count 3.75 10^6/uL (4.1-5.3); Red Cell Distribution Width 14.9 % (12.1-15.1); White Blood Count 10.2 10^3/uL (4.0-10.0)
[2022-01-07 02:54] LABS: Anion Gap 9.3 (5-19); Blood Urea Nitrogen 5 mg/dL (8-23); Calcium 9.5 mg/dL (8.5-10.5); Carbon Dioxide 29 mmol/L (22-29); Chloride 106 mmol/L (98-107); Glomerular Filtration Rate 100.6 mL/min (90-130); Glucose 117 mg/dL (65-115); Osmolality Calculated 288 mOsm/kg (285-295); Potassium 4.3 mmol/L (3.5-5.1); Sodium 140 mmol/L (136-145)
[2022-01-07] MEDS: oxyCODONE 5 mg IR Tab/Cap PO (06:33)
--- NOTE | 2022-01-07 10:38 | PC.CHAP ---
Pastoral Care Encounter/Spiritual Assessment Type of Contact [] Declined smoke control supervisor visit [] Patient/Family/Request visit [] Outpatient visit [] Follow-up visit [] Physician referral [] Code/Alert [x] Routine visit [] Staff referral [] Actively dying [] Patient sleeping [] Family support [] [] Out of room [] Palliative care [] [x] Receiving care in room [] Pre-surgical visit [] Trauma [] Long length of stay [] ICU visit [] Other: Relational/Emotional Strength [x] Patient feels connected with others/family/visitors/staff [] Distress [] Loneliness/isolation [] Abandonment Spirituality of Patient [x] Person of Latisha [] Attends Evangelical of their Latisha [x] Believes in Prayer [] Reads Bible or Yazidism materials [] There are Spiritual issues to be addressed Weapons Engineer Interventions [x] Prayer [x] Active listening [x] Non-anxious presence [x] Spiritual/emotional support [] Crisis/trauma care [x] Spiritual counseling [] Bereavement support [] Provided bereavement packet [] Provided Bible/devotional materials [] Provided toy/stuffed animal, coloring book to patient or family member [] Provided Communion [] Anointing/[place] [] Salvation [x] Completed spiritual assessment [] Other: Impact on Illness or Injury [] Angry [] Fearful [] Anxious [] Often cries [] Exhaustion [] Unable to work [] Unable to attend latter day [] Unable to walk/stand [] Unable to read [] Unable to drive [] Unable to eat/drink [] Unable to sleep [] Unable to be with family [] Patient intubated [] Other: Summary has a good attitude going into surgery on hip doesn't what needs to be done will be able to go mome soon Time spent with patient 10 mins
--- NOTE | 2022-01-07 11:56 | P.ANESUD_ITS ---
Pre-Anesthetic Update Pre-Anesthetic Assessment: Date of Surgery/Procedure: 01/07/22 Preop Palma gnosis: Right total hip arthroplasty failure with dissociation Proposed Procedure: Operation Date: 01/06/22 06:00 Proposed Procedures p Closed Reduction Hip(Right) - Ambar Neves MD Operation Date: 01/07/22 12:30 Proposed Procedures p Hip Arthroplasty Revision(Right) - Ambar Neves MD Any changes to Pre-Anesthetic Assessment?: No Last Intake: Intake Last Liquid Date 01/05/22 Last Liquid Time 23:30 Last Solid Date 01/05/22 Last Solid Time 20:30 Labs Last 48hrs: Short CBC 01/06/22 01/06/22 01/07/22 Range/Units 04:43 11:26 02:19 WBC 11.6 H 12.0 H 10.2 H (4.0-10.0) 10^3/ uL Hgb 11.3 L 11.4 L 11.8 (11.5-15.3) g/dL Hct 34.9 L 35.2 L 36.4 L (37.0-47.0) % MCV 96.7 97.5 97.1 (81-99) fl Plt Count 404 H 414 H 415 H (130-400) 10^3/c mm Neut % (Auto) 67.0 73.6 48.2 % Neut # (Auto) 7.72 H 8.82 H 4.94 (1.8-7.7) 10^3/u L BMP 01/06/22 01/06/22 01/07/22 04:43 11:26 02:19 Sodium 138 133 L 140 Potassium 3.6 3.3 L 4.3 Chloride 102 101 106 Carbon Dioxide 28 24 29 BUN 17 14 5 L Creatinine 0.5 0.5 0.6 Glucose 119 H 118 H 117 H Calcium 9.5 9.3 9.5 Liver Function 01/06/22 Range/Units 11:26 Total Bilirubin 0.3 (0.15-1.2) mg/dL AST 29 (0-32) U/L ALT 29 (0-33) U/L Alkaline Phosphata se 77 (35-105) U/L Albumin 3.7 (3.5-5.2) g/dL Urine 01/06/22 Range/Units 10:26 Urine Color Yellow (Yellow) Urine Appearance Hazy A (CLEAR) Urine pH 5 (5-7) Ur Specific Gravit y 1.020 (1.005-1.030) Urine Protein Neg (Negative) Urine Glucose (UA) Norm (Normal) Urine Ketones 1+ H (Negative) Urine Nitrate Positive H (Negative) Urine Bilirubin Neg (Negative) Ur Leukocyte Brenna ase 2+ H (Negative) Urine RBC 10-15 H (0-2) /hpf Urine WBC 15-25 H (0-5) /hpf Coags 01/06/22 04:43 PT 13.30 INR 0.98 Vitals: Temperature 98.5 F 01/07/22 11:00 Temperature Source Oral 01/07/22 11:00 Pulse Rate 70 01/07/22 11:53 Respiratory Rate 16 01/07/22 11:53 Respiratory Effort Non-Labored 01/07/22 06:33 Respiratory Depth Normal 01/07/22 06:33 Respiratory Patter n 01/06/22 07:40 Blood Pressure 131/70 01/07/22 11:53 Blood Pressure Jaimie n 90 01/07/22 11:53 Blood Pressure Pos ition Sitting 01/07/22 11:00 Pulse Oximetry 93 01/07/22 11:53 Oxygen Delivery Me thod 01/07/22 11:53 Sepsis Recent Feve r Within 48 Hours No 01/05/22 23:40 Exam: Pre-Anes Outpt Exam: alert, oriented x 3, clear to auscultation bilaterally and regular rate & rhythm Cardiac Studies: No Data to Display
[2022-01-07] MEDS: CELEcoxib 200 mg Capsule 400 MG PO (12:02)
[2022-01-07] MEDS: sodium chloride 0.9% 1,000 ML 30 ML IV (12:16)
--- NOTE | 2022-01-07 12:22 | PM.MISC ---
Miscellaneous Note Purpose of Documentation: Preoperative evaluation Note: The patient is seen in the preoperative holding area. Discussion is undertaken with the patient and her as to our plans for operative intervention. The procedure was further discussed including the possibility of needing to remove the acetabular component if we do not have a matching liner. She understands that equipment was transferred based upon x-ray interpretation. We have femoral heads available for the David stem. The patient and her understand the surgical procedure. Consents were discussed yesterday and again today. These are signed and questions are answered.
--- NOTE | 2022-01-07 13:27 | P.PN_ITS ---
Subjective Subjective: Zehra reports she was doing okay this morning when I saw her. She reported she was eager to have surgery. No other complaints. Medications: Reviewed: Yes Vitals/I&O/Wt Last Vital Signs Temp 98.2 F 01/07/22 12:11 Pulse 75 01/07/22 12:11 Resp 16 01/07/22 12:11 BP 109/59 01/07/22 12:11 Pulse Ox 95 01/07/22 12:11 O2 Del Method 01/07/22 12:11 01/06/22 01/07/22 01/07/22 22:59 06:59 14:59 Intake Total 120 / 630 Output Total 2850 / 2850 1275 / 4125 Balance -2730 / -2220 -1275 / -3495 Weight last 48 hrs Weight 56.699 kg Physical Exam Narrative: General exam is a white female, no distress Neck is supple no lymphadenopathy thyromegaly Cardiovascular regular rate and rhythm without murmur, no S3 or S4 Lungs clear no wheezing or crackles Abdomen is soft nontender positive bowel sounds Extremities no cyanosis clubbing or edema, cap refill brisk Skin no rash Urinary Catheter Management: Mejía: Cath Placed During This Visit: yes Reason for Continuing Indwelling Catheter: Required Immobilization for Trauma or Surgery or Anesthesia Urinary Catheter Date of Insertion: 01/06/22 Urinary Catheter Time of Insertion: 09:55 Data : 01/07/22 02:19 01/07/22 02:19 Micro: Microbiology 01/06/22 10:26 Urine Culture - Preliminary Urine,Clean Catch Gram Negative Rods A&P Assessment and plan (1) Failed total hip arthroplasty with dislocation: Definitive surgery planned for today No direct contraindications for surgery Status: Acute Qualifiers: Encounter type: initial encounter Laterality: right Qualified Code(s): T84.020A - Dislocation of internal right hip prosthesis, initial encounter (2) Bipolar 1 disorder: Continue patient's home medications. Status: Acute (3) Hypokalemia: Supplement orally currently. Status: Acute (4) UTI (urinary tract infection): Urine culture Rocephin 1 g IV every 24 hours Status: Acute Plan UTI, placed on ceftriaxone. Await culture. Multiple other medical problems as outlined in past medical history Full code Defer to primary DVT prophylaxis. SCDs are ordered. Thank you for this consultation Attestations Medical Necessity Statement*: As per primary Coding Level of Care Code Acute Boat Canvas Maker And Installer for Chg Fwd Diagnoses Failed total hip arthroplasty with dislocation T84.020A Encounter type: initial encounter Laterality: right Bipolar 1 disorder F31.9 Hypokalemia E87.6 UTI (urinary tract infection) N39.0
[2022-01-07] MEDS: ceFAZolin 2,000 MG in sodium chloride 0.9% (plus) 50 ML 100 MG IV ×2 (13:50→21:04)
--- NOTE | 2022-01-07 14:51 | SUR.OPER ---
Family Notified Of Patient's Status Via Phone.
--- NOTE | 2022-01-07 15:58 | SUR.OPER ---
Family Notified Of Patient's Status Via Phone.
[2022-01-07] MEDS: vancomycin 1,000 MG SDV 1000 MG XX (17:20)
[2022-01-07] MEDS: tranexamic acid 1,000 mg/10mL SDV 1000 MG IV (17:20)
--- NOTE | 2022-01-07 17:25 | XR_ITS ---
WS: [id number] Pelvis, AP portable supine, 01/07/2022 Clinical Data: Status post revision hip arthroplasty Comparison: Right hip, 01/06/2022. Findings: The femoral head portion of the arthroplasty is now within the femoral arthroplastic cup. There is soft tissue air surrounding the right hip from the recent intervention. XR/XR pelvis 1-2V* [id number] Impression: Right hip arthroplasty in good position.
--- NOTE | 2022-01-07 17:34 | PM.OP ---
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 A [employer] chrome cobalt head 12/14 taper size 28 mm x +3.5 mm neck length. Specimens removed/disposition: Synovium sent to pathology, cultures x2 of synovial fluid and synovium Surgeon: Ambar [employer] Captain: [facility] operating room technicians Anesthesia: General (Intubated, ASA 2) Estimated blood loss (mL): 600 IV fluids (mL): 1,100 Urine output (mL): 700 Complications: None Findings: Significant metallosis with grayish staining of synovium, dissociated femoral head in an obvious pocket, wear of the acetabular component and liner consistent with chronic dislocation. Condition: stable Disposition: PACU (Then to floor for postoperative rehabilitation and pain management.) Brief History: Zehra Adrian is a 66 year old female who presented to the emergency department last evening with a right hip dislocation.? The patient had total hip arthroplasty in [facility] in 2007.? This total hip was performed by a Dr. Gus Gomez.? The patient describes intermittent symptoms of subluxation of the hip, but she has not had a greg dislocation.? Her most recent feeling of subluxation was approximately a week or so ago.? Last evening, she was sitting in her chair and the hip popped out of joint.? She was brought to the emergency department where closed reduction was attempted.? She was neurologically intact and comfortable following this attempted reduction.? Emergency room physician was unable to obtain a reduction of the prosthetic component.? She therefore was brought into the hospital as outpatient in a bed for plans for closed reduction in the operating room with paralysis.? Upon placement on the [place] to accomplish the closed reduction, it became apparent with imaging studies that there had been dissociation between the femoral neck and femoral head.? The head remained outside of the acetabular component, and it appeared that the neck was within the acetabular component.? Therefore, the patient was admitted to the hospital.? We will attempt to obtain previous records from the patient's total hip arthroplasty in 2007.? A consent will be obtained.? She will need to undergo revision of her total hip arthroplasty versus replacement of the acetabular liner and femoral head if we can identify the prosthesis and obtain appropriate equipment.? Additionally, the final option is to place the femoral head on her current femoral stem and reduce this construct in an open fashion.? This is discussed with the patient and she is admitted for Farah's traction and subsequent surgical intervention once we are able to obtain information. Procedure: Patient was brought to the operating theater.? She was transferred to the operating room table and subsequently underwent general anesthesia, intubated, ASA 2.? Following administration of adequate anesthesia, the patient was placed in full lateral position and held in position with a pegboard.? The patient's right lower extremity was then prepped and draped in usual fashion utilizing DuraPrep.? It was draped free.? Following prepping and draping, a surgical pause was performed. At the time of surgical pause, we identified the site and side of surgery.? We also identified the patient and preoperative surgical markings.?Confirmation was made of equipment availability.? Additionally, the patient's preoperative IV antibiotic, Ancef 2 g, was confirmed as being given in a timely fashion and being the appropriate antibiotic.? She received TXA 1 g preoperatively as well 1 g postoperatively. Following the surgical pause, an incision through the previous incision was made centering over the patient's greater trochanter continuing proximally and distally as necessary to allow access to the hip joint.? Dissection continued through skin and soft tissues using a scalpel, and hemostasis was obtained using electrocautery. The tensor fascia hanna was identified and incised longitudinally.? Upon entry through the tensor fascia hanna, there was noted to be significant fluid within the hip joint. There was also black discoloration of the synovium secondary to metal wear. This fluid was cultured and the tissue was cultured. Tissue was also sent to pathology. A Nitza U retractor was placed after the tensor fascia hanna had been incised longitudinally. The hip was then entered. An extended period of time was undertaken to remove the cysts that have formed within her hip and remove the synovium which was completely infiltrated with metal. The acetabulum was noted to be very prominent and uncovered for nearly half of its superior border. We were able to remove the liner which was worn where the femur had been continuously coming out of socket. This impacted the acetabulum metal as well causing the metal debris. Care was taken to remove as much of the synovium and metal debris as possible. We then evaluated the femoral stem. The femoral stem was debrided of proximal soft tissue with metal. It was torqued and found to not appear loose. This was retracted out of position anteriorly. Care was taken to protect the trunnion which had to be sanded with a Bovie scraper to remove corrosion. The liner was removed from the acetabulum with some difficulty. The screw was then removed. A combination of flexible and rigid osteotomes were used to remove the acetabular component from the acetabulum. The acetabulum was evaluated. There is very little bone loss. Acetabulum was noted to be quite shallow, but there was some room for deepening. The initial acetabulum had been very superficial. We reamed to deepen to the inner wall. We then sequentially reamed without deepening to a size 51 reamer to allow for a size 52 acetabular cluster hole shell. Prior to placement of the acetabular shell, we took a mixture of DBM putty and V toss and reamed in reverse to push it into the acetabulum. We also placed this into the screw holes as they were drilled and into a cyst prior to placement of the acetabulum. We were able to place the 3 screws uneventfully. The acetabulum was found to be stable. The dome hole plug was then placed in position. Because of the mixture of the David femoral stem and the [employer] acetabulum with plans for the MDM liner, we placed the liner into the acetabulum for trial reductions. We were able to proceed with trial reduction. The hip was found to be stable at 90 degrees of flexion with 60 degrees of internal rotation and 30 degrees of adduction with the +3.5 femoral head. We started with a standard and increased the length. We considered placing a 7 mm femoral head, however, attempted reduction demonstrated that this would be too tight. With a +3.5 mm femoral head, it was felt that we had reproduced leg lengths. The acetabular liner used for trial reduction was removed. The dome hole plug was placed. We then obtained 28 mm diameter by 3.5 mm neck length David chrome cobalt femoral head. We placed this head into the MDM liner. It was found to fit nicely and rotated appropriately. Prior to placing this on the femoral stem, we placed the metal liner into the acetabulum. The femoral head construct was placed onto the femoral neck, and the hip was reduced. The hip was placed again through range of motion. And Betadine was used to irrigate the hip and left in position prior to subsequent irrigation and removal. The femur was retracted anteriorly.? Soft tissues were retracted and the labrum was removed. We then began reaming.? We deepened the acetabulum utilizing a smaller reamer.? Evaluation of the acetabulum was accomplished, and we were able to ream to 53 mm to allow for a size 54 mm acetabular shell. The acetabular component was impacted into position. It was noted that the acetabulum matched the bony anatomy.? The cup was noted to seat nicely and had good fixation upon impact.? The MDM cementless liner was impacted into position and care was taken to assure that it completely seated.? Also, we confirmed that the acetabular insert was completely seated prior to addressing the femur. Being satisfied with the prosthesis, attention was directed to closure. No capsule or short external rotators.? Tensor fascia hanna was closed with 0 Vicryl in an interrupted fashion.? The subcutaneous tissues were closed with 2 deeper 0 Vicryl sutures followed by 2-0 Monocryl.? Vancomycin powder and a Gelfoam thrombin mixture was placed into the wound as well.? The skin was closed with 4-0 Monocryl followed by Dermabond, Prineo, and OpSite.? The patient was placed in an abduction pillow.? She was returned the Recovery Room in a satisfactory condition and will be discharged to the floor for postoperative rehabilitation and pain management.? There were no complications. Related Problem List Diagnoses (1) Failed total hip arthroplasty with dislocation:
[2022-01-07 18:25] LABS: Glucose Point of Care 205 mg/dL (70-110)
[2022-01-07] MEDS: HYDROmorphone 1 mg/mL INJ 1 mL 0.5 MG IVP (18:35)
[2022-01-07] MEDS: sennosides-docusate Tablet 2 TAB PO (18:43)
[2022-01-07] MEDS: calcium carbonate 500 mg Chew Tablet 1000 MG PO (18:43)
[2022-01-07] MEDS: iron polysaccharide complex 150 mg Capsule PO (18:43)
[2022-01-07] MEDS: acetaminophen 1,000 MG/100 ML PIGGYBACK 400 MG IV (20:28)
[2022-01-07] MEDS: CELEcoxib 200 mg Capsule PO (20:33)
[2022-01-07] MEDS: chlorhexidine gluconate 0.12% Btl 473 mL 30 ML MUCOUS MEM (20:36)
[2022-01-08] VITALS (8 sets, daily range): BP systolic 93–109; BP diastolic 47–60; PULSE 71–79; RESP 16–20; TEMP 36.8–37.5; O2SAT 95–99
[2022-01-08 04:34] LABS: Basophils % 0.1 %; Hematocrit 28.8 % (37.0-47.0); Hemoglobin 9.3 g/dL (11.5-15.3); Lymphocytes # 2.1 10^3/uL (0.8-4.8); Lymphocytes % 20.3 %; Mean Corpuscular HGB Conc 32.3 g/dL (30.0-36.0); Mean Corpuscular Hemoglobin 31.2 pg (28.0-34.0); Mean Corpuscular Volume 96.6 fl (81-99); Mean Platelet Volume 9.9 fL (7.4-10.4); Monocytes # 1.2 10^3/uL (0.2-0.9); Monocytes % 11.1 %; Neutrophils # 7.06 10^3/uL (1.8-7.7); Neutrophils % 68.2 %; Nucleated Red Blood Cells % 0 %; Platelet Count 359 10^3/cmm (130-400); Red Blood Count 2.98 10^6/uL (4.1-5.3); Red Cell Distribution Width 14.6 % (12.1-15.1); White Blood Count 10.4 10^3/uL (4.0-10.0)
[2022-01-08] MEDS: acetaminophen 1,000 MG/100 ML PIGGYBACK 400 MG IV ×2 (04:40→13:40)
[2022-01-08] MEDS: oxyCODONE 5 mg IR Tab/Cap PO ×2 (04:41→09:10)
[2022-01-08 04:59] LABS: Anion Gap 10.1 (5-19); Blood Urea Nitrogen 8 mg/dL (8-23); Calcium 9.3 mg/dL (8.5-10.5); Carbon Dioxide 28 mmol/L (22-29); Chloride 102 mmol/L (98-107); Glomerular Filtration Rate 124.2 mL/min (90-130); Glucose 113 mg/dL (65-115); Osmolality Calculated 281 mOsm/kg (285-295); Potassium 4.1 mmol/L (3.5-5.1); Sodium 136 mmol/L (136-145)
[2022-01-08] MEDS: ceFAZolin 2,000 MG in sodium chloride 0.9% (plus) 50 ML 100 MG IV ×2 (05:10→13:00)
--- NOTE | 2022-01-08 06:30 | PC.NURSE ---
Patient refusing catheter removal at this time. Patient states I want PT to be here and work with me. That way I know I can get up correctly before it is removed. Charge Nurse Yasmin key.
[2022-01-08] MEDS: cefTRIAXone 1,000 MG in sodium chloride 0.9% (plus) 50 ML 100 MG IV (09:13)
[2022-01-08] MEDS: aspirin 325 mg EC Tablet PO (09:14)
[2022-01-08] MEDS: sennosides-docusate Tablet 2 TAB PO (09:14)
[2022-01-08] MEDS: CELEcoxib 200 mg Capsule PO (09:15)
[2022-01-08] MEDS: cholecalciferol (vitamin D3) 1,000 unit Tablet 1000 UNIT PO (09:15)
[2022-01-08] MEDS: iron polysaccharide complex 150 mg Capsule PO (09:15)
[2022-01-08] MEDS: multivitamin therapeutic Tablet 1 TAB PO (09:15)
[2022-01-08] MEDS: calcium carbonate 500 mg Chew Tablet 1000 MG PO (09:15)
[2022-01-08] MEDS: chlorhexidine gluconate 0.12% Btl 473 mL 30 ML MUCOUS MEM (09:18)
[2022-01-08] MEDS: mupirocin oint 22 gm 1 APPLIC NASAL (09:19)
--- NOTE | 2022-01-08 11:22 | P.PN_ITS ---
Subjective Subjective: Zehra reports pain is under control. She is excited about getting up with physical therapy today. Medications: Reviewed: Yes Vitals/I&O/Wt Last Vital Signs Temp 98.3 F 01/08/22 07:40 Pulse 76 01/08/22 08:00 Resp 16 01/08/22 09:10 BP 106/51 01/08/22 07:40 Pulse Ox 97 01/08/22 09:10 O2 Del Method 01/08/22 08:00 01/07/22 01/08/22 01/08/22 22:59 06:59 14:59 Intake Total 1800 / 1960 400 / 2360 240 / 240 Output Total 1999 / 1999 600 / 2600 600 / 600 Balance -200 / -40 -200 / -240 -360 / -360 Physical Exam Narrative: General exam is a white female, no distress Neck is supple no lymphadenopathy thyromegaly Cardiovascular regular rate and rhythm without murmur, no S3 or S4 Lungs clear no wheezing or crackles Abdomen is soft nontender positive bowel sounds Extremities no cyanosis clubbing or edema, cap refill brisk. Dressing right hip clean and dry Skin no rash Urinary Catheter Management: Mejía: Cath Placed During This Visit: yes Reason for Continuing Indwelling Catheter: Required Immobilization for Trauma or Surgery or Anesthesia Urinary Catheter Date of Insertion: 01/06/22 Urinary Catheter Time of Insertion: 09:55 Data : 01/08/22 04:24 01/08/22 04:24 Micro: Microbiology 01/06/22 10:26 Urine Culture - Final Urine,Clean Catch Klebsiella pneumoniae A&P Assessment and plan (1) Failed total hip arthroplasty with dislocation: Postoperative day #1 status post right hip revision/arthroplasty Status: Acute Qualifiers: Encounter type: initial encounter Laterality: right Qualified Code(s): T84.020A - Dislocation of internal right hip prosthesis, initial encounter (2) Bipolar 1 disorder: Continue patient's home medications. Status: Acute (3) Hypokalemia: Resolved with supplementation Status: Acute (4) UTI (urinary tract infection): Urine culture Klebsiella, sensitive to Rocephin Continue Rocephin 1 g IV every 24 hours Status: Acute Plan Acute postoperative blood loss anemia. Continue to monitor. Multiple other medical problems as outlined in past medical history Full code Defer to primary DVT prophylaxis. SCDs are ordered. Thank you for this consultation Attestations Medical Necessity Statement*: As per primary Coding Level of Care Code Acute Home Care Companion for Chg Fwd Diagnoses Failed total hip arthroplasty with dislocation T84.020A Encounter type: initial encounter Laterality: right Bipolar 1 disorder F31.9 Hypokalemia E87.6 UTI (urinary tract infection) N39.0
--- NOTE | 2022-01-08 17:19 | PM.DCS ---
Discharge Providers Date of Admission: 01/06/22 01:15 Date of Discharge: January 08, 2022 Attending Provider at Admission: Ambar Neves MD Attending Provider at Discharge: Ambar Neves MD Consults: Kalin De Luna MD Diagnoses at Discharge Discharge Diagnosis (1) Failed total hip arthroplasty with dislocation: Status: Acute Qualifiers: Encounter type: initial encounter Laterality: right Qualified Code(s): T84.020A - Dislocation of internal right hip prosthesis, initial encounter (2) Bipolar 1 disorder: Status: Acute (3) Hypokalemia: Status: Acute (4) UTI (urinary tract infection): Status: Acute Reason for Visit Reason for Visit: Failed Right Total Hip Arthroplasty w/ Dislocation Brief History: Zehra Adrian is a 66 year old female who presented to the emergency department last evening with a right hip dislocation.? The patient had total hip arthroplasty in [facility] in 2007.? This total hip was performed by a Dr. Gus Gomez.? The patient describes intermittent symptoms of subluxation of the hip, but she has not had a greg dislocation.? Her most recent feeling of subluxation was approximately a week or so ago.? Last evening, she was sitting in her chair and the hip popped out of joint.? She was brought to the emergency department where closed reduction was attempted.? She was neurologically intact and comfortable following this attempted reduction.? Emergency room physician was unable to obtain a reduction of the prosthetic component.? She therefore was brought into the hospital as outpatient in a bed for plans for closed reduction in the operating room with paralysis.? Upon placement on the [place] to accomplish the closed reduction, it became apparent with imaging studies that there had been dissociation between the femoral neck and femoral head.? The head remained outside of the acetabular component, and it appeared that the neck was within the acetabular component.? Therefore, the patient was admitted to the hospital.? We obtained previous records from the patient's total hip arthroplasty in 2007.? A consent will be obtained.? She will need to undergo revision of her total hip arthroplasty versus replacement of the acetabular liner and femoral head if we can identify the prosthesis and obtain appropriate equipment.? Additionally, the final option is to place the femoral head on her current femoral stem and reduce this construct in an open fashion.? This is discussed with the patient, and she was admitted for subsequent surgical intervention once we are able to obtain information. Hospital Course Hospital Course This 66-year-old woman was seen in the emergency department as outlined above. She was diagnosed as having a right total hip arthroplasty dislocation which was irreducible in the emergency department. She was initially maintained in the hospital under outpatient status to be reduced in the operating room. The patient was taken to the operating room prior to the regular operating room hours on the day of admission. As she was placed on the [place] table for reduction, it became apparent that the femoral head was dissociated from the femoral neck. Therefore, she was admitted to the hospital for a hip revision surgery. This was accomplished on the following day after we were able to obtain appropriate components to revise the hip safely. The patient underwent a total hip revision including both the acetabular and femoral components. This was accomplished uneventfully. She did well following her revision arthroplasty and was ready for discharge to home the following day. She will follow-up with me in the office as scheduled. At the time of her discharge, her dressing was intact. She was neurologically intact as well. There was no evidence of DVT. She was ambulating independently. Physical Exam Const: COMMON NORMALS: no acute distress, average body habitus and patient oriented x3 GENERAL APPEARANCE: cooperative and comfortable ORIENTATION/CONSCIOUSNESS: Yes awake HENMT: COMMON NORMALS: normocephalic and atraumatic HEAD & SCALP: normocephalic and atraumatic Eye: GENERAL EYE: appearance normal, both eyes and all related structures Chest: COMMONS NORMALS: normal inspection of the chest Resp: COMMON NORMALS: normal respiratory effort EFFORT & INSPECTION: Yes able to speak in complete sentences and Yes symmetric chest movement Extremity: RIGHT LOWER EXTREMITY: Yes hip joint (Soft and nontender) Right hip: Yes inspection (No drainage or ecchymosis), Yes ROM (Not evaluated) and Yes neurovascular exam (Intact distally with no evidence of DVT) Neuro: COMMON NORMALS: patient oriented x3 Psych: COMMON NORMALS: mental status grossly normal APPEARANCE: Yes grossly normal ATTITUDE: Yes calm and Yes engaged ATTENTION/CONCENTRATION: Yes attention grossly intact Skin: COMMON NORMALS: no rashes or lesions noted GENERAL SKIN EXAM: no rashes or lesions noted Urinary Catheter Management: Mejía: Cath Placed During This Visit: yes, but has since been removed by the nurse Reason for Continuing Indwelling Catheter: Required Immobilization for Trauma or Surgery or Anesthesia Urinary Catheter Date of Insertion: 01/06/22 Urinary Catheter Time of Insertion: 09:55 Date Urinary Catheter Removed: 01/08/22 Time Urinary Catheter Discontinued: 09:00 Discharge Data Studies Completed and Pending Completed Studies During Hospitalization Category Date Time Status XR hip RT 1V wo/[place] pel [id number] Routine Exams 01/06/22 Completed XR hip RT 1V wo/[place] [id number] Stat Exams 01/06/22 00:03 Completed XR hip RT 2-3V wo/w pel* [id number] Stat Exams 01/05/22 23:46 Completed XR pelvis 1-2V* [id number] Routine Exams 01/07/22 17:25 Completed Pending at discharge Category Date Time Status Anaerobic Culture Routine Lab 01/07/22 14:40 Results CBC Auto Diff [Complete Blood Count w/Auto] AM LABS Lab 01/09/22 04:00 Ordered Tissue Culture and Gram Stain Routine Lab 01/07/22 14:40 Results Wound Culture and Gram Stain Routine Lab 01/07/22 14:40 Results Pathology: Surgical [PTH] Routine Pth 01/07/22 16:48 Received Radiology Impressions Hip/Pelvis X-Ray 01/05/22 23:46 IMPRESSION: Right hip arthroplasty changes seen with superior displacement of the femoral component outside of the acetabular component without fracture seen. Hip X-Ray 01/06/22 00:03 IMPRESSION: Apparent near complete reduction of previously seen right hip dislocation. Acetabular component appears somewhat superolateral to the acetabular component, please correlate clinically. Finding in part may be due to positioning. Pelvis X-Ray 01/07/22 17:25 Impression: Right hip arthroplasty in good position. Laboratory Results WBC 10.4 10^3/uL (4.0-10.0) H 01/08/22 04:24 RBC 2.98 10^6/uL (4.1-5.3) L 01/08/22 04:24 Hgb 9.3 g/dL (11.5-15.3) L 01/08/22 04:24 Hct 28.8 % (37.0-47.0) L 01/08/22 04:24 MCV 96.6 fl (81-99) 01/08/22 04:24 MCH 31.2 pg (28.0-34.0) 01/08/22 04:24 MCHC 32.3 g/dL (30.0-36.0) 01/08/22 04:24 RDW 14.6 % (12.1-15.1) 01/08/22 04:24 Plt Count 359 10^3/cmm (130-400) 01/08/22 04:24 MPV 9.9 fL (7.4-10.4) 01/08/22 04:24 Neut % (Auto) 68.2 % 01/08/22 04:24 Lymph % (Auto) 20.3 % 01/08/22 04:24 Grand % (Auto) 11.1 % 01/08/22 04:24 Eos % (Auto) 0.0 % 01/08/22 04:24 Baso % (Auto) 0.1 % 01/08/22 04:24 Neut # (Auto) 7.06 10^3/uL (1.8-7.7) 01/08/22 04:24 Lymph # (Auto) 2.1 10^3/uL (0.8-4.8) 01/08/22 04:24 Grand # (Auto) 1.2 10^3/uL (0.2-0.9) H 01/08/22 04:24 Eos # (Auto) 0.0 10^3/uL (0.0-0.8) 01/08/22 04:24 Baso # (Auto) 0.0 10^3/uL (0.0-0.1) 01/08/22 04:24 Nucleated RBC % (auto) 0 % 01/08/22 04:24 Nucleated RBCs # 0.0 /100WBC 01/08/22 04:24 PT 13.30 SECONDS (12.1-14.9) 01/06/22 04:43 INR 0.98 (0.8-1.2) 01/06/22 04:43 Sodium 136 mmol/L (136-145) 01/08/22 04:24 Potassium 4.1 mmol/L (3.5-5.1) 01/08/22 04:24 Chloride 102 mmol/L (98-107) 01/08/22 04:24 Carbon Dioxide 28 mmol/L (22-29) 01/08/22 04:24 Anion Gap 10.1 (5-19) 01/08/22 04:24 BUN 8 mg/dL (8-23) 01/08/22 04:24 Creatinine 0.5 mg/dL (0.5-0.9) 01/08/22 04:24 GFR Calculation 124.2 mL/min (90-130) 01/08/22 04:24 Glucose 113 mg/dL (65-115) 01/08/22 04:24 POC Glucose 205 mg/dL (70-110) H 01/07/22 18:21 Calculated Osmolality 281 mOsm/kg (285-295) L 01/08/22 04:24 Calcium 9.3 mg/dL (8.5-10.5) 01/08/22 04:24 Total Bilirubin 0.3 mg/dL (0.15-1.2) 01/06/22 11:26 AST 29 U/L (0-32) 01/06/22 11:26 ALT 29 U/L (0-33) 01/06/22 11:26 Alkaline Phosphatase 77 U/L (35-105) 01/06/22 11:26 Total Protein 6.3 g/dL (6.6-8.7) L 01/06/22 11:26 Albumin 3.7 g/dL (3.5-5.2) 01/06/22 11:26 Globulin 2.6 g/dL (1.3-4.6) 01/06/22 11:26 Urine Color Yellow (Yellow) 01/06/22 10:26 Urine Appearance Hazy (CLEAR) A 01/06/22 10:26 Urine pH 5 (5-7) 01/06/22 10:26 Ur Specific [place] 1.020 (1.005-1.030) 01/06/22 10:26 Urine Protein Neg (Negative) 01/06/22 10:26 Urine Glucose (UA) Norm (Normal) 01/06/22 10:26 Urine Ketones 1+ (Negative) H 01/06/22 10:26 Urine Blood 2+ (Negative) H 01/06/22 10:26 Urine Nitrate Positive (Negative) H 01/06/22 10:26 Urine Bilirubin Neg (Negative) 01/06/22 10:26 Urine Urobilinogen 0.2 mg/dL (Negative) 01/06/22 10:26 Ur Leukocyte Esterase 2+ (Negative) H 01/06/22 10:26 Urine RBC 10-15 /hpf (0-2) H 01/06/22 10:26 Urine WBC 15-25 /hpf (0-5) H 01/06/22 10:26 Ur Squamous Epith Cells 0-4 /hpf (0-5) H 01/06/22 10:26 Calcium Oxalate Crystal 0-4 /hpf H 01/06/22 10:26 Amorphous Sediment Not Reportable 01/06/22 10:26 Urine Bacteria 4+ /hpf (NONE) H 01/06/22 10:26 Vitals Last Vital Signs Temp 98.2 F 01/08/22 15:15 Pulse 75 01/08/22 15:15 Resp 18 01/08/22 15:15 BP 107/60 01/08/22 15:15 Pulse Ox 99 01/08/22 15:15 O2 Del Method 01/08/22 15:15 Discharge Plan Discharge Patient Disposition: Home Health Service Condition: Stable Prescriptions: New aspirin 325 mg Tablet,Delayed Release (Dr/Ec) 325 mg PO DAILY Qty: 30 0RF celecoxib 200 mg Capsule 200 mg PO Q12H 30 Days Qty: 60 0RF cefuroxime axetil 250 mg Tablet 250 mg PO BID 10 Days Qty: 20 0RF oxycodone 5 mg Tablet 5 mg PO Q4H PRN (Reason: Moderate Pain) 7 Days Qty: 30 0RF Continued quetiapine [Seroquel] 300 mg tablet 300 mg PO BEDTIME lithium carbonate 150 mg capsule 150 mg PO BEDTIME escitalopram oxalate [Lexapro] 20 mg tablet 20 mg PO BEDTIME galantamine 4 mg tablet 4 mg PO BID Qty: 180 3RF Rx Instructions: administer with AM and PM meals Lamictal 200 mg tablet 200 mg PO BEDTIME Changed acetaminophen 500 mg Tablet 1,000 mg PO Q8H PRN (Reason: Pain) 15 Days Qty: 90 0RF Held ibuprofen 200 mg Tablet 400 mg PO Q6H PRN (Reason: Pain) Hold Instructions: Resume on 02/07/22. Resume after Celebrex Discharge Orders: Discharge Order (Routine); Ordered 01/08/22 Ordered By: Ambar Neves [place] [facility] [place]Outside] Jesu Nathan DO [Physician] - 01/21/22 11:00 am Ambar Neves MD [Physician] - 01/20/22 10:00 am (Your follow up appointment will be with Ovi Mcelroy N.P.. Thank you.) Discharge Diet: Advance as tolerated and Usual diet Discharge Activity: Limit activity as instructed, Use walker/crutches as instructed and As per PT/OT instructions Patient Instructions: Cefuroxime (By mouth), Aspirin (By mouth), Oxycodone, Rapid Release (By mouth), Celecoxib (By mouth), Precautions after Total Joint Replacement Surgery (GEN), Joint Replacement Surgery (DC), Opioid Safety Activity Restrictions/Additional Instructions: Posterior hip precautions. Weightbearing as tolerated. Maintain your dressing until it comes off on its own. Follow-up in the office as scheduled. Discharge Attestations Time Spent in Discharge Care*: greater than 30 min Specific Discharge Activities: educating patient, educating and/or supporting family/caregiver, documenting/other paperwork and evaluating patient/reviewing data Quality Metrics Clinical Quality Measures [ No reported AMI, CVA or VTE this stay] Coding Level of Care Code Acute Chg FW DC note Exam Comprehensive Diagnoses Failed total hip arthroplasty with dislocation T84.020A Encounter type: initial encounter Laterality: right Bipolar 1 disorder F31.9 Hypokalemia E87.6 UTI (urinary tract infection) N39.0
== END 2022-01-08 18:01 | disposition home health service (06) | DRG 467 ==
LOC: ER 01-06 00:05 → MEDSURG 01-06 01:17
PROVIDERS: Internal Medicine; Admitting Provider Specialist; Emergency Provider Emergency Medicine; Visit Provider Specialist
PROC: 0QJYXZZ Inspection of Lower Bone, External Approach (ICD-10-PCS; principal; 2022-01-06 06:00)
PROC: 0SR90JA Replacement of Right Hip Joint with Synthetic Substitute, Uncemented, Open Approach (ICD-10-PCS; principal; 2022-01-07 12:30)
DX: T84.020A Dislocation of internal right hip prosthesis, initial encounter (principal); N39.0 Urinary tract infection, site not specified; Y79.8 Miscellaneous orthopedic devices associated with adverse incidents, not elsewhere classified; Z86.73 Personal history of transient ischemic attack (TIA), and cerebral infarction without residual deficits; Z90.81 Acquired absence of spleen; Z87.891 Personal history of nicotine dependence; F31.9 Bipolar disorder, unspecified; G43.711 Chronic migraine without aura, intractable, with status migrainosus; E87.6 Hypokalemia
CPT/HCPCS: 36415; 36416; 51702; 72170; 73501; 73502; 76000; 80048; 80053; 81001; 82962; 85025; 85610; 87070; 87075; 87077; 87086; 87176; 87186; 87205; 88304; 93005; 97110; 97116; 97161; 97165; 99285; C1713; C1776; J0330; J0360; J0696; J1100; J1170; J2250; J2405; J2704; J3010; J3370; J3490; J7030; P9041

== ENCOUNTER 2022-01-13 11:01 | Observation (INO) | payer MEDICARE, SELFPAY ==
[2022-01-13] VITALS (21 sets, daily range): BP systolic 125–154; BP diastolic 63–97; PULSE 60–121; RESP 12–26; TEMP -13.1–36.9; O2SAT 92–100; BMI 25.0
--- NOTE | 2022-01-13 | XR_ITS ---
WS: [id number] XR pelvis 1-2V* [id number] REASON FOR EXAM: HIP DISLOCATION FINDINGS: Previous total right hip arthroplasty. Currently the femoral head component is superiorly (and probab ly posteriorly) dislocated from the acetabular cup. No fracture is identified. XR/XR pelvis 1-2V* [id number] IMPRESSION: Dislocated total right hip arthroplasty.
--- NOTE | 2022-01-13 11:11 | ECG_ITS ---
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 Measurements Intervals [place] Rate: 60 P: 72 AK: 148 QRS: 73 QRSD: 82 T: 68 QT: 459 QTc: 461 Interpretive Statements SINUS RHYTHM POSSIBLE RIGHT VENTRICULAR CONDUCTION DELAY [RSR (QR) IN V1/V2] Compared to ECG 01/06/2022 00:44:57 No significant changes Electronically Signed On 01-14-2022 10:36:07 CDT by Néstor Ocampo M.D. [id number]
--- NOTE | 2022-01-13 11:12 | ED_ITS ---
HPI - General Adult General: Chief complaint: Extremity Problem,Nontraumatic Stated complaint: hip dislocation Time Seen by Provider: 01/13/22 11:03 History of Present Illness: Patient is a 66-year-old female with a history of right-sided hip total arthroplasty and recent surgery by Dr. Neves presenting to the emergency room with acute hip pain and deformity. Patient tells me that he was sitting down at the kitchen waiting for breakfast when suddenly she felt a pop and since then has been having severe pain. Patient previously had dislocation 1 week ago surgically repaired by Dr. Matias. Patient denies any fever/chills has been able to move the leg but complains of severe pain. EMS was called in route, patient received 100 mg of IM fentanyl and 200 mg and IV fentanyl. Patient has no other focal complaints including falls or injuries. She denies nausea/vomiting, fever/chill, chest pain, shortness of breath, abdominal pain, dysuria/hematuria/polyuria, diarrhea/melena/hematochezia. Onset: 1 hr ago Duration:1 hr Location:home Severity:severe Associated symptoms: Deny chest pain, dyspnea, nausea, rash, palpitations or vomiting Review of Systems Const: Denies: fever(s) or chills Eyes: Denies: change in vision ENMT: Denies: mouth pain Card: Denies: chest pain or palpitations Resp: Denies: dyspnea or non-productive cough GI: Denies: abdominal pain, nausea, vomiting or diarrhea : Denies: dysuria Musc: Reports: extremity pain (+R hip pain) Skin/Breast: Denies: rash or new lesions Neuro: Denies: weakness in extremities Psych: Reports: other (Normal mood) Filiberto/Lymph: Denies: easy bruising [facility] ED PFSH: Medical History Bipolar 1 disorder Chronic migraine without aura, intractable, with status migrainosus H/O arteriovenous malformation (AVM) (~1984) H/O: CVA (cerebrovascular accident) (~2015) right middle cerebral artery Seizures Surgical History 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 History of craniotomy History of splenectomy Family History Father CAD (coronary artery disease) Social History Smoking and tobacco status: never smoked Alcohol intake: former Lives independently: Yes Housing: House Marital status: Number of children: 1 Highest education level completed: 12th Grade, No Diploma service: No Pets and animals: Yes History of recent travel: No Additional social history: - Tobacco use: Former; Quit in 1995 Alcohol use: Former; Quit 1981 Drug use: Denies Physical Exam Const: COMMON NORMALS: alert HENMT: COMMON NORMALS: atraumatic HEAD & SCALP: atraumatic MOUTH: moist mucous membranes not abnormal Eye: COMMON NORMALS: EOMs intact bilaterally and conjunctivae normal CONJUNCTIVA: Yes conjunctivae normal Neck/C-Spine: COMMON NORMALS: full ROM and supple Resp: COMMON NORMALS: normal respiratory effort and clear to auscultation b ilaterally AUSCULTATION: clear to auscultation bilaterally Cardio: COMMON NORMALS: regular rate RATE: regular rate GI: COMMON NORMALS: Soft to palpation and non-tender PALPATION: Yes Soft to palpation OTHER: No focal TTP. NO guarding rebound, guarding, rigidity. No CVA tenderness to percussion. Neg Subramanian/Neg McBurney's point tenderness, no suprabupic tenderness to palpation. Extremity: NARRATIVE EXTREMITY EXAM: +R hip shorting and external rotation +R hip deformity Neuro: SENSORIUM/ORIENTATION: Yes alert MOTOR EXAM: No Abnormal motor strength present and Other motor observations present (no focal motor deficits) Psych: COMMON NORMALS: speech normal SPEECH: Yes normal speech MOOD & AFFECT: Yes euthymic mood Procedures Orthopedic Joint Reduction Joint #1: Time Out Performed: Yes Side: right Joint Reduction Location: hip Analgesia: procedural sedation Technique used: other (see below) Post-reduction neuro exam: intact Post-reduction vascular: intact Post Reduction X-Ray Obtained: Yes Post Reduction X-Ray Results: not reduced Additional Comments: Captain Jeong'aicha technique: Director Of Respiratory Therapy to position the patient: 90 degrees of hip and knee flexion Step one foot up onto the gurney. Director Of Respiratory Therapy to position his knee behind the patient's knee. Director Of Respiratory Therapy to place first hand under the patient?s knee and the secondhand over the patient?s ankle. Director Of Respiratory Therapy to use first hand to lift up on the patient?s femur. Director Of Respiratory Therapy to Plantar-flex patient's ankle so that hog operator propped knee can lift up on the patient?s femur. Director Of Respiratory Therapy to very gently use second hand to leverage-down on against the patient?s tibia/fibula. Procedural Sedation Indication: fracture/dislocation reduction ASA Class: II Preparation: satellite project site monitor applied, pulse oximeter, capnometry used, supplemental O2 applied, suction/airway equipment at bedside and IV secured Ketamine: IV Ketamine dose (mg): 100 IV Propofol dose (mg): 100 Patient Tolerated Procedure: well Complications: none Additional Comments: PROCEDURE NOTE: Procedural Sedation Performed by: Casey Asif Indications: Hip dislocation reduction [place] Protocol: a time out was performed and the correct patient and site were verified Consent: The risks and benefits of monitored anesthesia care, including the risk of aspiration, deep sedation requiring airway management including possible intubation, nausea/vomiting and the risks of not performing the procedure, including severe pain and inability to complete the procedure, were all discussed with the [patient]. The alternatives of performing the procedure, including local anesthesia and IV analgesia, also discussed. The patient has a ride home available. ASA Class: II-mild systemic disease Mallampati Score: 2 Pre-anesthesia evaluation, including history, exam, and informed consent is documented in the note above. Monitoring: Continuous monitoring of heart rate, respiratory rate, pulse oximetry and ETCO2. Supplemental oxygen prior to and during procedure via nasal cannula. Resuscitation equipment available at the bedside during sedation. The patient received ketamine and propofol and dosages were recorded on the sedation form. The patient was recovered from the sedation without complication or incident. Patient returned to pre-sedation level of awareness. The monitoring was discontinued at this time. Post-anesthesia evaluation: Respiratory function, cardiovascular function, temperature, and mental status [did] return to pre-anesthetic state. Hip is not reduced after multiple attempts. Patient is neurologically intact. Course Vital Signs: Vital signs: Vital Signs Temperature 99.0 F 01/14/22 14:47 Pulse Rate 70 01/14/22 14:47 Respiratory Rate 16 01/14/22 14:47 Blood Pressure 110/43 01/14/22 14:47 Pulse Oximetry 93 01/14/22 14:47 Oxygen Delivery Me thod 01/14/22 11:59 Oxygen Flow Rate 6 01/13/22 22:18 MDM - General Adult Medical Decision Making Patient is a 66-year-old female with a history of right-sided hip total arthroplasty and recent surgery by Dr. Neves presenting to the emergency room with acute hip pain and deformity. She is neurologically intact in the left lower extremity. There is visible deformity. X-rays show right-sided hip dislocation. Patient received multiple doses of pain medicine reports feeling improved. Case was discussed with Dr. Neves who recommended procedural sedation and reduction of dislocation initially. Patient consent was obtained from roxy ent. Risk and benefit alternatives discussed with patient patient agrees with procedural sedation and reduction. Please refer to the procedure notes for each. After multiple attempts with dislocation reduction under sedation, patient continues to have a dislocated hip. At this point, I discussed case with Dr. Neves who agrees with taking the patient to the OR. Disposition: OR Lab Data : 01/14/22 01:49 01/14/22 01:49 Radiology Impressions Pelvis X-Ray 01/13/22 22:12 IMPRESSION: Right hip arthroplasty changes in place with reduction of previously seen right hip dislocation. Negative for fracture. Laboratory Results WBC 9.3 10^3/uL (4.0-10.0) 01/13/22 11:23 RBC 2.87 10^6/uL (4.1-5.3) L 01/13/22 11:23 Hgb 8.9 g/dL (11.5-15.3) L 01/13/22 11:23 Hct 29.8 % (37.0-47.0) L 01/13/22 11:23 MCV 103.8 fl (81-99) H 01/13/22 11:23 MCH 31.0 pg (28.0-34.0) 01/13/22 11:23 MCHC 29.9 g/dL (30.0-36.0) L 01/13/22 11:23 RDW 16.0 % (12.1-15.1) H 01/13/22 11:23 Plt Count 506 10^3/cmm (130-400) H 01/13/22 11:23 MPV 9.7 fL (7.4-10.4) 01/13/22 11:23 Neut % (Auto) 61.3 % 01/13/22 11:23 Lymph % (Auto) 25.0 % 01/13/22 11:23 [place] % (Auto) 8.9 % 01/13/22 11:23 Eos % (Auto) 3.6 % 01/13/22 11:23 Baso % (Auto) 0.6 % 01/13/22 11:23 Neut # (Auto) 5.71 10^3/uL (1.8-7.7) 01/13/22 11:23 Lymph # (Auto) 2.3 10^3/uL (0.8-4.8) 01/13/22 11:23 [place] # (Auto) 0.8 10^3/uL (0.2-0.9) 01/13/22 11:23 Eos # (Auto) 0.3 10^3/uL (0.0-0.8) 01/13/22 11:23 Baso # (Auto) 0.1 10^3/uL (0.0-0.1) 01/13/22 11: Nucleated RBC % (auto) 0 % 01/13/22 11: Nucleated RBCs # 0.0 /100WBC 01/13/22 11:23 PT 12.50 SECONDS (12.1-14.9) 01/13/22 11:23 INR 0.90 (0.8-1.2) 01/13/22 11:23 APTT 25.2 SECONDS (23.9-36.7) 01/13/22 11:23 Sodium 138 mmol/L (136-145) 01/13/22 11:23 Potassium 3.7 mmol/L (3.5-5.1) 01/13/22 11:23 Chloride 103 mmol/L (98-107) 01/13/22 11:23 Carbon Dioxide 21 mmol/L (22-29) L 01/13/22 11:23 Anion Gap 17.7 (5-19) 01/13/22 11:23 BUN 10 mg/dL (8-23) 01/13/22 11:23 Creatinine 0.5 mg/dL (0.5-0.9) 01/13/22 11:23 GFR Calculation 124.2 mL/min (90-130) 01/13/22 11:23 Glucose 94 mg/dL (65-115) 01/13/22 11:23 Calculated Osmolality 285 mOsm/kg (285-295) 01/13/22 11:23 Calcium 9.7 mg/dL (8.5-10.5) 01/13/22 11:23 Blood Type AB Positive 01/13/22 17:00 Rho(D) Type Positive 01/13/22 17:00 Antibody Screen Negative 01/13/22 17:00 Crossmatch See Detail 01/13/22 17:00 Imaging Data Other Imaging: Radiologist's impression: [address] [address] XRay Report Signed Patient: Zehra Adrian Unit #: [id number] : 1955 Age/Sex: 66 / F ADM Date: 01/13/22 Loc: ER Room/Bed: Attending Dr: Ordering Provider/Ordering MD: Casey sAif MD Date of Service: 01/13/22 Procedure(s): XR pelvis 1-2V* [id number] Accession Number(s): [id number] Report Number: [id number] PROCEDURE INFORMATION: Exam: XR Pelvis Exam date and time: 01/13/2022 1:02 PM Age: 66 years old Clinical indication: Other: Hip dislocation; Prior surgery; Surgery type: RT total hip; Additional info: Hip dislocation R TECHNIQUE: Imaging protocol: Radiologic exam of the pelvis. Views: 1 or 2 view. COMPARISON: CR XR pelvis 1-2V* [id number] 01/07/2022 5:37 PM FINDINGS: Bones/joints:? There is a metallic right hip arthroplasty in place.? There is evidence of dislocation of the prosthesis. The distal component has been retracted above the proximal component? No acute fracture.? There is osteopenia and osteoarthritis seen in the lumbar spine Soft tissues: Unremarkable. XR/XR pelvis 1-2V* [id number] IMPRESSION: 1. Dislocation of the right hip arthroplasty . 2. Negative for acute bone abnormality. 3. Lumbar spine osteoarthritis? ? Dictated By: Gómez Pulido Signed By: Gómez Pulido Signed Date/Time: 01/13/22 1430 DD/ 1302 Discharge Plan Discharge Patient Disposition: Admitted As Inpatient Admit Provider: Ambar Neves Clinical Impression: Acute hip pain, Dislocation, hip Condition: Stable Discharge Diet: Advance as tolerated and Usual diet Discharge Activity: Limit activity as instructed, Use walker/crutches as instructed and As per PT/OT instructions Coding Level of Care Code ED Representative for Chandu Fwd Exam Comprehensive
[2022-01-13] MEDS: HYDROmorphone 1 mg/mL INJ 1 mL IVP (11:32)
[2022-01-13 11:34] LABS: Basophils # 0.1 10^3/uL (0.0-0.1); Basophils % 0.6 %; Eosinophils # 0.3 10^3/uL (0.0-0.8); Eosinophils % 3.6 %; Hematocrit 29.8 % (37.0-47.0); Hemoglobin 8.9 g/dL (11.5-15.3); Lymphocytes # 2.3 10^3/uL (0.8-4.8); Mean Corpuscular HGB Conc 29.9 g/dL (30.0-36.0); Mean Corpuscular Volume 103.8 fl (81-99); Mean Platelet Volume 9.7 fL (7.4-10.4); Monocytes # 0.8 10^3/uL (0.2-0.9); Monocytes % 8.9 %; Neutrophils # 5.71 10^3/uL (1.8-7.7); Neutrophils % 61.3 %; Nucleated Red Blood Cells % 0 %; Platelet Count 506 10^3/cmm (130-400); Red Blood Count 2.87 10^6/uL (4.1-5.3); White Blood Count 9.3 10^3/uL (4.0-10.0)
[2022-01-13] MEDS: sodium chloride 0.9% 1,000 ML 999 ML IV (11:35)
[2022-01-13 11:47] LABS: Partial Thromboplastin Time 25.2 SECONDS (23.9-36.7)
[2022-01-13 11:51] LABS: Anion Gap 17.7 (5-19); Blood Urea Nitrogen 10 mg/dL (8-23); Calcium 9.7 mg/dL (8.5-10.5); Carbon Dioxide 21 mmol/L (22-29); Chloride 103 mmol/L (98-107); Glomerular Filtration Rate 124.2 mL/min (90-130); Glucose 94 mg/dL (65-115); Osmolality Calculated 285 mOsm/kg (285-295); Potassium 3.7 mmol/L (3.5-5.1); Sodium 138 mmol/L (136-145)
[2022-01-13] MEDS: HYDROmorphone 1 mg/mL INJ 1 mL 0.5 MG IVP (12:12)
--- NOTE | 2022-01-13 12:32 | XRR_ITS ---
PROCEDURE INFORMATION: Exam: XR Pelvis Exam date and time: 01/13/2022 1:02 PM Age: 66 years old Clinical indication: Other: Hip dislocation; Prior surgery; Surgery type: RT total hip; Additional info: Hip dislocation R TECHNIQUE: Imaging protocol: Radiologic exam of the pelvis. Views: 1 or 2 view. COMPARISON: CR XR pelvis 1-2V* [id number] 01/07/2022 5:37 PM FINDINGS: Bones/joints: There is a metallic right hip arthroplasty in place. There is evidence of dislocation of the prosthesis. The distal component has been retracted above the proximal component No acute fracture. There is osteopenia and osteoarthritis seen in the lumbar spine Soft tissues: Unremarkable. XR/XR pelvis 1-2V* [id number] IMPRESSION: 1. Dislocation of the right hip arthroplasty . 2. Negative for acute bone abnormality. 3. Lumbar spine osteoarthritis
[2022-01-13] MEDS: propofol 10 mg/mL SDV 20 mL 70 MG IVP (15:43)
--- NOTE | 2022-01-13 16:07 | ANES.PREANE2 ---
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 Social No alcohol and No tobacco Exam alert, oriented x 3, clear to auscultation bilaterally and regular rate & rhythm Airway Submandibular: within normal limits Cervical ROM: within normal limits Mallampati: Class I Dentition: loose Pulmonary Chronic Obstructive Pulmonary Disease CV/HEM Anemia (Hgb 8.9) None reported Hepatic None reported GI None reported Metabolic None reported Musc/skel Osteoarthritis/DJD 6 days post op revision Kit Neuropsych Bipolar, Cerebrovascular Accident, Headache and Seizure Anesthetic Plan ASA status: 2 Anesthesia: Anesthesia Evaluation and General Other: We discussed risk and benefits of general anesthesia including PONV, sore throat (sometimes severe), corneal abrasion, positioning and peripheral nerve injuries, life threatening allergic reaction, post operative ICU admission requiring prolonged intubation, aspiration, stroke, heart attack, , and rare incidences of recall. Patient consents to proceed with general anesthesia. Risk of > 500 ml blood loss (7ml/kg in children): Yes, adequate IV access and fluids planned Medications/Allergies Home Medications Medication Instructions Recorded Confirmed Last Taken Type quetiapine 300 mg tablet (Seroquel) 300 mg PO BEDTIME 09/25/19 01/13/22 Unknown History escitalopram oxalate 20 mg tablet 20 mg PO BEDTIME 12/20/19 01/13/22 Unknown History (Lexapro) lithium carbonate 150 mg capsule 150 mg PO BEDTIME 12/20/19 01/13/22 Unknown History galantamine 4 mg tablet 4 mg PO BID #180 tabs 12/09/21 01/13/22 Unknown Rx lamotrigine 200 mg tablet 200 mg PO BEDTIME 01/06/22 01/13/22 Unknown History (Lamictal) acetaminophen 500 mg tablet 1,000 mg PO Q8H PRN Pain 15 days 01/08/22 01/13/22 Unknown Rx #90 tabs aspirin 325 mg tablet,delayed 325 mg PO DAILY #30 tabs 01/08/22 01/13/22 Unknown Rx release cefuroxime axetil 250 mg tablet 250 mg PO BID 10 days #20 tabs 01/08/22 01/13/22 Unknown Rx celecoxib 200 mg capsule 200 mg PO Q12H 30 days #60 caps 01/08/22 01/13/22 Unknown Rx oxycodone 5 mg tablet 5 mg PO Q4H PRN Moderate Pain 7 01/08/22 01/13/22 Unknown Rx days #30 tabs cholecalciferol (vitamin D3) 25 25 mcg PO DAILY 01/13/22 01/13/22 Unknown History mcg (1,000 unit) tablet (Vitamin D3) [id number] 1 tab PO DAILY 01/13/22 01/13/22 Unknown History 750 mg-100 mg-125 mg-1.65 mg tablet (Glucosamine Chondroit Complx Advan) multivit with 1 tab PO DAILY 01/13/22 01/13/22 Unknown History fgnmkwxe-keno-DF-lutein 8 mg iron-400 mcg-300 mcg tablet (Centrum Silver Women) vitamin B complex 1 tab PO DAILY 01/13/22 01/13/22 Unknown History vitamin B12 2,500 mcg-folic acid 1 tab PO DAILY 01/13/22 01/13/22 Unknown History 400 mcg disintegrating tablet Allergies Allergy/AdvReac Type Severity Reaction Status Date / Time Penicillins Allergy Mild upset Verified 01/13/22 14:32 stomach PFSH Anesthesia Medical History Bipolar 1 disorder Chronic migraine without aura, intractable, with status migrainosus H/O arteriovenous malformation (AVM) (~1984) H/O: CVA (cerebrovascular accident) (~2015) right middle cerebral artery Seizures Surgical History 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 History of craniotomy History of splenectomy Family History Father CAD (coronary artery disease) Social History Smoking and tobacco status: never smoked Alcohol intake: former Lives independently: Yes Housing: House Marital status: Number of children: 1 Highest education level completed: 12th Grade, No Diploma service: No Pets and animals: Yes History of recent travel: No Additional social history: - Tobacco use: Former; Quit in 1995 Alcohol use: Former; Quit 1981 Drug use: Denies Data Anesthesia : 01/13/22 11:23 01/13/22 11:23 Short CBC 01/13/22 Range/Units 11:23 WBC 9.3 (4.0-10.0) 10^3/uL Hgb 8.9 L (11.5-15.3) g/dL Hct 29.8 L (37.0-47.0) % MCV 103.8 H (81-99) fl Plt Count 506 H (130-400) 10^3/cmm Neut % (Auto) 61.3 % Neut # (Auto) 5.71 (1.8-7.7) 10^3/uL BMP 01/13/22 11:23 Sodium 138 Potassium 3.7 Chloride 103 Carbon Dioxide 21 L BUN 10 Creatinine 0.5 Glucose 94 Calcium 9.7 Coags 01/13/22 11:23 PT 12.50 INR 0.90 APTT 25.2 Cardiac Studies: No Data to Display
[2022-01-13] MEDS: morphine 4 mg/mL SDV 1 mL IVP ×2 (17:59→23:13)
--- NOTE | 2022-01-13 18:59 | PC.NURSE ---
Patient taken by OR staff, vs not obtained prior to leaving ED, patient's personal pillow and shorts placed in bag and name on bag.
[2022-01-13] MEDS: sodium chloride 0.9% 1,000 ML 30 ML IV (20:00)
--- NOTE | 2022-01-13 20:01 | W.PM.OPSUD ---
Surgery/Procedure H&P Update DATE OF PROCEDURE: January 13, 2022 DATE H&P PERFORMED: 01/06/22 H&P UPDATE INFORMATION: I have reviewed H&P completed within last 30 days, I have examined patient prior to procedure, No changes to prior documentation and H&P is in [facility] E[facility] on date indicated CHANGES TO PREVIOUS DOCUMENTATION: The patient was at home this morning attempting to put on her hip abduction pillow and put her right hip in a position of vulnerability. The hip dislocated and the patient came to the emergency department. Attempt was made closed by the emergency room physician. He stated he tried to do 4 closed reductions without success. She presents this evening for open reduction right hip dislocation. PREOP DIAGNOSIS: Posterior superior hip dislocation after total hip arthroplasty PLANNED PROCEDURE: Operation Date: 01/13/22 20:30 Proposed Procedures p Open Reduction Hip(Right) - Ambar Nevse MD
[2022-01-13] MEDS: ceFAZolin 2,000 MG in sodium chloride 0.9% (plus) 50 ML 100 MG IV (20:40)
[2022-01-13] MEDS: vancomycin 1,000 MG SDV 1000 MG XX (21:27)
--- NOTE | 2022-01-13 22:12 | XRR_ITS ---
PROCEDURE INFORMATION: Exam: XR Pelvis Exam date and time: 01/13/2022 10:25 PM Age: 66 years old Clinical indication: Injury or trauma; Other: Dislocation; Right; Prior surgery; Surgery type: Thr; Patient HX: Check S/P surgical reduction of RT hip replacement. ; Additional info: Reduction of hip dislocation, low ap pelvis TECHNIQUE: Imaging protocol: Radiologic exam of the pelvis. Views: 1 or 2 view. COMPARISON: CR XR pelvis 1-2V* [id number] 01/13/2022 3:37 PM FINDINGS: Bones/joints: Right hip arthroplasty changes in place with reduction of previously seen right hip dislocation. Negative for fracture. Soft tissues: Unremarkable. XR/XR pelvis 1-2V* [id number] IMPRESSION: Right hip arthroplasty changes in place with reduction of previously seen right hip dislocation. Negative for fracture.
--- NOTE | 2022-01-13 22:14 | PM.OP ---
Operative Report Date of procedure: January 13, 2022 Pre-op diagnosis: Posterior superior hip dislocation after total hip arthroplasty Post-op diagnosis: Posterior superior right hip dislocation after total hip arthroplasty Procedure done: Posterior superior right hip dislocation after total hip arthroplasty Implants: None Specimens removed/disposition: None Pathology: none sent Surgeon: Ambar Neves Plastic Fixture Builder: [facility] operating room technicians Anesthesia: General (Intubated, ASA 3) Estimated blood loss (mL): 100 IV fluids (mL): 1,200 Urine output (mL): 50 Complications: None Findings: Posterior superior dislocation right hip Condition: stable Disposition: PACU (Then to floor for observation postoperatively.) Brief History: This 66-year-old woman presented initially with a posterior superior dislocation of her right total hip arthroplasty which was placed in [place]. There was dissociation of the femoral head and neck. The hip therefore was revised with a new acetabular component. The patient was stable after the revision surgery. The patient was at home this morning attempting to put on her hip abduction pillow and put her right hip in a position of vulnerability.? The hip dislocated and the patient came to the emergency department.? Attempt was made closed by the emergency room physician.? He stated he tried to do 4 closed reductions without success.? She presents this evening for open reduction right hip dislocation. Procedure: Patient was brought to the operating theater.? She was transferred to the operating room table and subsequently underwent general anesthesia, intubated, ASA 3.? Following administration of adequate anesthesia, the patient was placed in full lateral position and held in position with a pegboard.? The patient's right lower extremity was then prepped and draped in usual fashion utilizing DuraPrep.? It was draped free.? Following prepping and draping, a surgical pause was performed. At the time of surgical pause, we identified the site and side of surgery.? We also identified the patient and preoperative surgical markings.?Confirmation was made of equipment availability.? Additionally, the patient's preoperative IV antibiotic, Ancef 2 g, was confirmed as being given in a timely fashion and being the appropriate antibiotic. The patient's previous incision was entered. There was significant bloody fluid consistent with traumatic dislocation from this morning and multiple attempts at reduction. Hip was evaluated. It was debrided of hematoma. It was copiously irrigated. The hip was then reduced uneventfully. Following reduction, the hip was stable at 90 degrees of flexion with 80 degrees of internal rotation. With adduction, greater than 30 degrees, the hip would dislocate. It was stable to toe hang. It was also stable to external rotation. Once again, the hip was irrigated with normal saline and Betadine. This was left in the wound. We then suctioned it out and irrigated again with normal saline. Closure was then accomplished with 0 Vicryl in the fascial tissues. Subcutaneous tissues were closed with 2-0 Monocryl and the skin was closed with a running 3-0 Monocryl. This was followed by Dermabond pernio. OpSite was then placed. Patient was placed in an abduction pillow and returned to the recovery room in satisfactory condition where x-rays were obtained prior to her being discharged to the floor. Related Problem List Diagnoses (1) Dislocation of hip, right, closed:
[2022-01-13] MEDS: meperidine 50 mg/mL INJ 12.5 MG IVP (22:35)
[2022-01-14] VITALS (11 sets, daily range): BP systolic 99–118; BP diastolic 43–64; PULSE 68–84; RESP 16–18; TEMP 36.3–37.2; O2SAT 93–98
[2022-01-14] MEDS: quetiapine 300 mg Tablet PO
[2022-01-14] MEDS: acetaminophen 1,000 MG/100 ML PIGGYBACK 400 MG IV ×2 (00:01→08:43)
[2022-01-14] MEDS: lithium carbonate 150 mg Capsule PO (00:12)
[2022-01-14] MEDS: escitalopram 10 mg Tablet 20 MG PO (00:12)
[2022-01-14 02:19] LABS: Basophils % 0.2 %; Hematocrit 24.7 % (37.0-47.0); Hemoglobin 7.9 g/dL (11.5-15.3); Lymphocytes # 0.8 10^3/uL (0.8-4.8); Lymphocytes % 6.9 %; Mean Corpuscular Hemoglobin 31.7 pg (28.0-34.0); Mean Corpuscular Volume 99.2 fl (81-99); Mean Platelet Volume 9.9 fL (7.4-10.4); Monocytes # 0.4 10^3/uL (0.2-0.9); Monocytes % 3.6 %; Neutrophils # 10.65 10^3/uL (1.8-7.7); Neutrophils % 88.6 %; Nucleated Red Blood Cells % 0 %; Platelet Count 485 10^3/cmm (130-400); Red Blood Count 2.49 10^6/uL (4.1-5.3); Red Cell Distribution Width 15.9 % (12.1-15.1)
[2022-01-14 02:42] LABS: Anion Gap 16.5 (5-19); Blood Urea Nitrogen 8 mg/dL (8-23); Calcium 8.4 mg/dL (8.5-10.5); Carbon Dioxide 18 mmol/L (22-29); Chloride 108 mmol/L (98-107); Glomerular Filtration Rate 124.2 mL/min (90-130); Glucose 137 mg/dL (65-115); Osmolality Calculated 288 mOsm/kg (285-295); Potassium 3.5 mmol/L (3.5-5.1); Sodium 139 mmol/L (136-145)
[2022-01-14] MEDS: oxyCODONE 5 mg IR Tab/Cap PO ×3 (03:30→07:21)
--- NOTE | 2022-01-14 06:27 | PC.NURSE ---
Mejía catheter removed at this time with balloon intact.
[2022-01-14] MEDS: aspirin 325 mg EC Tablet PO (08:43)
[2022-01-14] MEDS: ceFAZolin 2,000 MG in sodium chloride 0.9% (plus) 50 ML 100 MG IV ×2 (08:43)
[2022-01-14] MEDS: cefUROXime 250 mg Tablet PO (08:43)
[2022-01-14] MEDS: multivitamin therapeutic Tablet 1 TAB PO (08:43)
[2022-01-14] MEDS: sennosides-docusate Tablet 2 TAB PO (08:44)
[2022-01-14] MEDS: iron polysaccharide complex 150 mg Capsule PO (08:44)
[2022-01-14] MEDS: cholecalciferol (vitamin D3) 1,000 unit Tablet 1000 UNIT PO (08:44)
--- NOTE | 2022-01-14 10:12 | PC.CHAP ---
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 [] Patient/Family/Request visit [] Outpatient visit [] Follow-up visit [] Physician referral [] Code/Alert [x] Routine visit [] Staff referral [] Actively dying [] Patient sleeping [] Family support [] [] Out of room [] Palliative care [] [x] Receiving care in room [] Pre-surgical visit [] Trauma [] Long length of stay [] ICU visit [] Other: Relational/Emotional Strength [x] Patient feels connected with others/family/visitors/staff [] Distress [] Loneliness/isolation [] Abandonment Spirituality of Patient [x] Person of Latisha [] Attends Roman Catholic of their Latisha [x] Believes in Prayer [] Reads Bible or Methodist materials [] There are Spiritual issues to be addressed Top Frame Maker Interventions [x] Prayer [x] Active listening [x] Non-anxious presence [x] Spiritual/emotional support [] Crisis/trauma care [x] Spiritual counseling [] Bereavement support [] Provided bereavement packet [] Provided Bible/devotional materials [] Provided toy/stuffed animal, coloring book to patient or family member [] Provided Communion [] Anointing/[place] [] Salvation [x] Completed spiritual assessment [] Other: Impact on Illness or Injury [] Angry [] Fearful [] Anxious [] Often cries [] Exhaustion [] Unable to work [] Unable to attend hoahaoism [] Unable to walk/stand [] Unable to read [] Unable to drive [] Unable to eat/drink [] Unable to sleep [] Unable to be with family [] Patient intubated [] Other: Summary had hip surgery feels good and is going home Time spent with patient 10 mins
[2022-01-14] MEDS: morphine 4 mg/mL SDV 1 mL IVP (11:12)
[2022-01-14] MEDS: CELEcoxib 200 mg Capsule PO ×2 (11:13)
--- NOTE | 2022-01-14 13:30 | P.DS_ITS ---
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 There was dissociation of the femoral head and neck.? The hip therefore was revised with a new acetabular component.? The patient was stable after the revision surgery. The patient was at home this morning attempting to put on her hip abduction pillow and put her right hip in a position of vulnerability.? The hip dislocated and the patient came to the emergency department.? Attempt was made closed by the emergency room physician.? He stated he tried to do 4 closed reductions without success.? She presents this evening for open reduction right hip dislocation. Hospital Course Hospital Course Patient was admitted following a dislocation at home. She states she was moving her leg abnormally in bed attempting to get it into her abduction pillow prior to breakfast, and it popped out . She presented yesterday to the emergency department where closed reduction was unsuccessful. This was attempted by the emergency room physician. Secondary to this, the patient was taken to the operating room for an open reduction. The patient's previous incision was opened and the hip was reduced. She was returned to an abduction pillow. Given that the patient describes a significant event or position leading to her dislocation as well as the fact that on the table she was quite stable unless she adducted her hip significantly, she will be fitted with a hinged hip brace set at limitation of 70 degrees of flexion. She is to wear this at all times. She will be discharged to home. Physical Exam Const: COMMON NORMALS: no acute distress, average body habitus, patient oriented x3 and alert GENERAL APPEARANCE: cooperative and comfortable ORIENTATION/CONSCIOUSNESS: Yes awake HENMT: COMMON NORMALS: normocephalic and atraumatic HEAD & SCALP: normocephalic and atraumatic Eye: GENERAL EYE: appearance normal, both eyes and all related structures Chest: COMMONS NORMALS: normal inspection of the chest Resp: COMMON NORMALS: normal respiratory effort EFFORT & INSPECTION: Yes able to speak in complete sentences and Yes symmetric chest movement Extremity: RIGHT LOWER EXTREMITY: Yes hip joint (Status post open reduction with intact dressing.) Right hip: Yes neurovascular exam (Intact distally.) and Yes other (Very apprehensive with any range of motion.) Neuro: COMMON NORMALS: patient oriented x3 SENSORIUM/ORIENTATION: Yes alert Psych: COMMON NORMALS: mental status grossly normal APPEARANCE: Yes grossly normal ATTITUDE: Yes calm and Yes engaged ATTENTION/CONCENTRATION: Yes attention grossly intact Skin: COMMON NORMALS: no rashes or lesions noted GENERAL SKIN EXAM: no rashes or lesions noted Discharge Data Studies Completed and Pending Completed Studies During Hospitalization Category Date Time Status XR pelvis 1-2V* [id number] Routine Exams 01/13/22 22:12 Completed XR pelvis 1-2V* [id number] Stat Exams 01/13/22 Completed XR pelvis 1-2V* [id number] Stat Exams 01/13/22 12:32 Completed Pending at discharge Category Date Time Status RED BLOOD CELLS [Leukocyte Reduced RBC] Routine Lab 01/13/22 17:00 Results Type and Screen Stat Lab 01/13/22 17:00 Results Radiology Impressions Pelvis X-Ray 01/13/22 22:12 IMPRESSION: Right hip arthroplasty changes in place with reduction of previously seen right hip dislocation. Negative for fracture. Laboratory Results WBC 12.0 10^3/uL (4.0-10.0) H 01/14/22 01:49 RBC 2.49 10^6/uL (4.1-5.3) L 01/14/22 01:49 Hgb 7.9 g/dL (11.5-15.3) L 01/14/22 01:49 Hct 24.7 % (37.0-47.0) L 01/14/22 01:49 MCV 99.2 fl (81-99) H 01/14/22 01:49 MCH 31.7 pg (28.0-34.0) 01/14/22 01:49 MCHC 32.0 g/dL (30.0-36.0) D 01/14/22 01:49 RDW 15.9 % (12.1-15.1) H 01/14/22 01:49 Plt Count 485 10^3/cmm (130-400) H 01/14/22 01:49 MPV 9.9 fL (7.4-10.4) 01/14/22 01:49 Neut % (Auto) 88.6 % 01/14/22 01:49 Lymph % (Auto) 6.9 % 01/14/22 01:49 Newton % (Auto) 3.6 % 01/14/22 01:49 Eos % (Auto) 0.0 % 01/14/22 01:49 Baso % (Auto) 0.2 % 01/14/22 01:49 Neut # (Auto) 10.65 10^3/uL (1.8-7.7) H 01/14/22 01:49 Lymph # (Auto) 0.8 10^3/uL (0.8-4.8) 01/14/22 01:49 Newton # (Auto) 0.4 10^3/uL (0.2-0.9) 01/14/22 01:49 Eos # (Auto) 0.0 10^3/uL (0.0-0.8) 01/14/22 01:49 Baso # (Auto) 0.0 10^3/uL (0.0-0.1) 01/14/22 01:49 Nucleated RBC % (auto) 0 % 01/14/22 01:49 Nucleated RBCs # 0.0 /100WBC 01/14/22 01:49 PT 12.50 SECONDS (12.1-14.9) 01/13/22 11:23 INR 0.90 (0.8-1.2) 01/13/22 11:23 APTT 25.2 SECONDS (23.9-36.7) 01/13/22 11:23 Sodium 139 mmol/L (136-145) 01/14/22 01:49 Potassium 3.5 mmol/L (3.5-5.1) 01/14/22 01:49 Chloride 108 mmol/L (98-107) H 01/14/22 01:49 Carbon Dioxide 18 mmol/L (22-29) L 01/14/22 01:49 Anion Gap 16.5 (5-19) 01/14/22 01:49 BUN 8 mg/dL (8-23) 01/14/22 01:49 Creatinine 0.5 mg/dL (0.5-0.9) 01/14/22 01:49 GFR Calculation 124.2 mL/min (90-130) 01/14/22 01:49 Glucose 137 mg/dL (65-115) H 01/14/22 01:49 Calculated Osmolality 288 mOsm/kg (285-295) 01/14/22 01:49 Calcium 8.4 mg/dL (8.5-10.5) L 01/14/22 01:49 Blood Type AB Positive 01/13/22 17:00 Rho(D) Type Positive 01/13/22 17:00 Antibody Screen Negative 01/13/22 17:00 Crossmatch See Detail 01/13/22 17:00 Vitals Last Vital Signs Temp 99.0 F 01/14/22 11:59 Pulse 70 01/14/22 11:59 Resp 16 01/14/22 11:59 BP 110/43 01/14/22 11:59 Pulse Ox 93 01/14/22 11:59 O2 Del Method 01/14/22 11:59 O2 Flow Rate 6 01/13/22 22:18 Discharge Plan Discharge Patient Disposition: Home Condition: Stable Prescriptions: New oxycodone 5 mg Tablet 5 mg PO Q4H PRN (Reason: Moderate Pain) 7 Days Qty: 30 0RF Continued quetiapine [Seroquel] 300 mg tablet 300 mg PO BEDTIME lithium carbonate 150 mg capsule 150 mg PO BEDTIME escitalopram oxalate [Lexapro] 20 mg tablet 20 mg PO BEDTIME galantamine 4 mg tablet 4 mg PO BID Qty: 180 3RF Rx Instructions: administer with AM and PM meals lamotrigine [Lamictal] 200 mg tablet 200 mg PO BEDTIME aspirin 325 mg Tablet,Delayed Release (Dr/Ec) 325 mg PO DAILY Qty: 30 0RF celecoxib 200 mg Capsule 200 mg PO Q12H 30 Days Qty: 60 0RF cefuroxime axetil 250 mg Tablet 250 mg PO BID 10 Days Qty: 20 0RF acetaminophen 500 mg Tablet 1,000 mg PO Q8H PRN (Reason: Pain) 15 Days Qty: 90 0RF oxycodone 5 mg Tablet 5 mg PO Q4H PRN (Reason: Moderate Pain) 7 Days Qty: 30 0RF vitamin B complex Tablet 1 tab PO DAILY Vitamin D3 25 mcg (1,000 unit) Tablet 25 mcg PO DAILY Glucos Chond Cplx Advanced 750 mg-100 mg- 125 mg-1.65 mg Tablet 1 tab PO DAILY Centrum Silver Women 8 mg iron-400 mcg-300 mcg Tablet 1 tab PO DAILY vitamin T25-bbakt acid 2,500-400 mcg Tablet,Disintegrating 1 tab PO DAILY Discharge Orders: Discharge Order (Routine); Ordered 01/14/22 Ordered By: Ambar Neves Other Ambulatory Orders: DME: Walker (Order) Location: None Selected Ordered By: Ambar Neves Ref[place] [facility] [place] [facility] [place]) [Outside] Ambar Neves MD [Physician] - 2 weeks Discharge Diet: Advance as tolerated and Usual diet Discharge Activity: Limit activity as instructed, Use walker/crutches as instructed and As per PT/OT instructions Patient Instructions: Opioid Safety Activity Restrictions/Additional Instructions: Posterior hip precautions. Ice to right hip. Wear abduction brace at all times. Discharge Attestations Time Spent in Discharge Care*: greater than 30 min Specific Discharge Activities: educating patient, documenting/other paperwork and evaluating patient/reviewing data Quality Metrics Clinical Quality Measures [ No reported AMI, CVA or VTE this stay] Coding Level of Care Code Acute [facility] note Diagnoses Dislocation of hip, right, closed S73.004A
--- NOTE | 2022-01-15 14:06 | ANE.PACU2 ---
Inpatient post-anesthesia follow up: Airway intact: Yes Vital signs: Temperature 99.0 F Pulse Rate 70 Respiratory Rate 16 Blood Pressure 110/43 Pulse Oximetry 93 Oxygen Delivery Me thod [ Room Air Current Rate & Del alex] Oxygen Delivery Me thod Room Air Oxygen Flow Rate 6 Fraction of Inspir ed Oxygen Hydration adequate: Yes Nausea and vomiting: No Pain level: 1 Mental status: Baseline Additional Comments: Late entry for care provided on day of surgery
== END 2022-01-14 14:48 | disposition home or self-care (01) ==
LOC: ER 16:05 → OPS 19:17 → MEDSURG 21:57
PROVIDERS: Admitting Provider Specialist; Emergency Provider Emergency Medicine; Visit Provider Specialist
PROC: (CPT 27253; principal; 2022-01-13 20:00)
DX: T84.020A Dislocation of internal right hip prosthesis, initial encounter (principal); J44.9 Chronic obstructive pulmonary disease, unspecified
CPT/HCPCS: 27253; 36415; 72170; 80048; 85025; 85610; 85730; 86850; 86900; 86920; 93005; 96374; 96375; 96376; 97116; 97161; 97167; 97530; 97535; 97760; 99285; G0378; J0330; J1100; J1170; J2175; J2250; J2270; J2405; J2704; J3010; J3370; J3490; J7030

== ENCOUNTER → 2022-01-28 10:54 | Outpatient (BNVA) | payer MEDICARE, SELFPAY | PROVIDERS: Visit Provider Nurse Practitioner Family | DX: S73.004A Unspecified dislocation of right hip, initial encounter (principal); X58.XXXA Exposure to other specified factors, initial encounter | CPT/HCPCS: 73502; 99024 ==

== ENCOUNTER → 2022-02-25 10:35 | Outpatient (BNVA) | payer MEDICARE, SELFPAY | PROVIDERS: Visit Provider Nurse Practitioner Family | DX: Z98.890 Other specified postprocedural states (principal); X58.XXXA Exposure to other specified factors, initial encounter; S73.004A Unspecified dislocation of right hip, initial encounter | CPT/HCPCS: 99213 ==

== ENCOUNTER → 2022-04-15 11:02 | Outpatient (BNVA) | payer MEDICARE, SELFPAY | PROVIDERS: Visit Provider Nurse Practitioner Family | DX: Z98.890 Other specified postprocedural states (principal); S73.004A Unspecified dislocation of right hip, initial encounter; X58.XXXA Exposure to other specified factors, initial encounter | CPT/HCPCS: 73502; 99213 ==

== ENCOUNTER → 2022-07-14 13:41 | Outpatient (BNVA) | payer MEDICARE, SELFPAY | PROVIDERS: Visit Provider Nurse Practitioner Family | DX: S73.01 Posterior subluxation and dislocation of hip (principal); X58.XXXD Exposure to other specified factors, subsequent encounter; Z96.641 Presence of right artificial hip joint | CPT/HCPCS: 73502; 99213 ==

== ENCOUNTER → 2023-05-17 08:58 | Outpatient (BNVA) | payer MEDICARE, SELFPAY | PROVIDERS: PCP Family Medicine; Visit Provider Specialist | DX: G40.109 Localization-related (focal) (partial) symptomatic epilepsy and epileptic syndromes with simple partial seizures, not intractable, without status epilepticus (principal) | CPT/HCPCS: 95816 ==

== ENCOUNTER → 2023-05-19 15:00 | Outpatient (BNVA) | payer OTHER, SELFPAY | PROVIDERS: PCP Family Medicine; Visit Provider Nurse Practitioner Women's Health | DX: Z12.4 Encounter for screening for malignant neoplasm of cervix (principal); Z12.11 Encounter for screening for malignant neoplasm of colon; Z13.820 Encounter for screening for osteoporosis; Z78.0 Asymptomatic menopausal state; N94.10 Unspecified dyspareunia; Z01.419 Encounter for gynecological examination (general) (routine) without abnormal findings; N39.46 Mixed incontinence; Z79.899 Other long term (current) drug therapy | CPT/HCPCS: 87624 ==

== ENCOUNTER → 2023-06-24 07:39 | Outpatient (BNVA) | payer MEDICARE, SELFPAY | PROVIDERS: PCP Family Medicine; Visit Provider Specialist | DX: G40.109 Localization-related (focal) (partial) symptomatic epilepsy and epileptic syndromes with simple partial seizures, not intractable, without status epilepticus (principal); R41.89 Other symptoms and signs involving cognitive functions and awareness | CPT/HCPCS: 95819; 96116; 99214 ==

== ENCOUNTER → 2024-01-03 12:30 | Outpatient (BNVA) | payer MEDICARE, SELFPAY | PROVIDERS: PCP Family Medicine; Visit Provider Specialist | DX: R41.89 Other symptoms and signs involving cognitive functions and awareness (principal); G40.109 Localization-related (focal) (partial) symptomatic epilepsy and epileptic syndromes with simple partial seizures, not intractable, without status epilepticus; S06.9X0S Unspecified intracranial injury without loss of consciousness, sequela; X58.XXXS Exposure to other specified factors, sequela | CPT/HCPCS: 99214 ==